=== PATIENT | female | born 1935 | race African-American/Black ===

== ENCOUNTER 2017-01-02 17:31 | Emergency (ER) | payer OTHER ==
[2017-01-02 17:37] VITALS: BP 178/94; PULSE 107; TEMP 98; BMI 31.4
--- NOTE | 2017-01-02 18:36 | PDOC ---
History of Present Illness - General Chief Complaint: Hemorrhoids Stated Complaint: EVALUATION Time Seen by Provider: 01/02/17 18:07 History Source: Patient Exam Limitations: No Limitations - History of Present Illness Travel History: No Initial Comments: 01/02/17 18:40 c/o FB/ protruding sensation to rectum. States feels as tho there is something there that shouldnt be,. STates BMS are regular and generally not hard, no recent straining No Pain Sweliing / constipation/ Bleeding/ No dysuria Timing/Duration: reports: changing over time, intermittent Activities at Onset: reports: none Past History - Travel Traveled outside of the country in the last 30 days: No Close contact w/someone who was outside of country & ill: No - Past Medical History Allergies/Adverse Reactions: Allergies Allergy/AdvReac Type Severity Reaction Status Date / Time No Known Allergies Allergy Verified 01/02/17 17:37 Home Medications: Ambulatory Orders Amlodipine Besylate 10 mg PO ASDIR 01/02/17 Bisacodyl [Dulcolax] 5 mg PO DAILY PRN #10 tablet. 01/02/17 Dexlansoprazole [Dexilant] 60 mg PO DAILY 01/02/17 Metformin HCl [Glucophage] 1,000 mg PO ASDIR 01/02/17 Metoprolol Succinate [Toprol Xl] 50 mg PO ASDIR 01/02/17 Pravastatin Sodium 10 mg PO ASDIR 01/02/17 Diabetes: Yes HTN: Yes - Psycho/Social/Smoking Cessation Hx Suicidal Ideation: No Smoking History: Never smoked Hx Alcohol Use: No Drug/Substance Use Hx: No Substance Use Type: None Review of Systems - Review of Systems Able to Perform ROS?: Yes Is the patient limited South African proficient: Yes Constitutional: Yes: Symptoms Reported, See HPI, Fever, Malaise HEENTM: No: Symptoms Reported Respiratory: Yes: See HPI. No: Symptoms reported ABD/GI: Yes: Symptoms Reported, See HPI, Other ( ). No: Constipated, Diarrhea, Rectal Bleeding Musculoskeletal: Yes: See HPI. No: Symptoms Reported Integumentary: No: Symptoms Reported All Other Systems: Reviewed and Negative *Physical Exam - Vital Signs Last Vital Signs Temp Pulse Resp BP Pulse Ox 98.0 F 107 H 20 178/94 97 01/02/17 17:33 01/02/17 17:33 01/02/17 17:33 01/02/17 17:33 01/02/17 17:33 - Physical Exam General Appearance: Yes: Nourished, Appropriately Dressed, Apparent Distress HEENT: positive: ELISE, TMs Normal, Pharynx Normal Neck: positive: Supple, Lymphadenopathy (R), Lymphadenopathy (L). negative: Tender Respiratory/Chest: positive: Lungs Clear, Normal Breath Sounds Gastrointestinal/Abdominal: positive: Soft, Guarding. negative: Normal Bowel Sounds Rectal Exam: positive: normal exam, normal rectal tone, other (stool in vault, not constipated ). negative: hemorrhoids Musculoskeletal: positive: Normal Inspection Extremity: positive: Normal Capillary Refill, Normal Inspection. negative: Normal Range of Motion Integumentary: positive: Normal Color, Dry, Warm, Pale Neurologic: positive: milk bottler II-XII NML intact, Fully Oriented, Alert, Normal Response, Motor Strength 5/5 Progress Note - Progress Note Progress Note: mild constipation/ and slow defecation - will encourage conservative measures / mineral oil/ fiber. See PMD and possible GI referral for thorough evaluation. *DC/Admit/Observation/Transfer Diagnosis at time of Disposition: Constipation Qualifiers: Constipation type: unspecified constipation type Qualified Code(s): K59.00 - Constipation, unspecified - Discharge Dispostion Disposition: HOME Condition at time of disposition: Stable Admit: No - Prescriptions Prescriptions: Bisacodyl [Dulcolax] 5 mg PO DAILY PRN #10 tablet.dr MENDEZ Reason: Constipation - Referrals Referrals: Gregory Virk MD [Primary Care Provider] - - Patient Instructions Printed Discharge Instructions: DI for Constipation Additional Instructions: Lots of water/ fiber ini diet Mineral oil / [place] oil daily See PMD in 1 week if not improved RTER for fevers/ pain/ bleeding or worsening problems
== END 2017-01-02 18:46 | disposition home or self-care (01) ==
LOC: JERFT 17:31
DX: K59.01 Slow transit constipation (principal); I10 Essential (primary) hypertension; E11.9 Type 2 diabetes mellitus without complications; Z79.84 Long term (current) use of oral hypoglycemic drugs
CPT/HCPCS: 99281-25

== ENCOUNTER 2018-09-30 14:43 | Inpatient (IN) | payer OTHER ==
--- NOTE | 2018-09-30 15:07 | PDOC ---
History of Present Illness - General Chief Complaint: SIRS, Suspected/Possible Stated Complaint: Altered Mental Status Time Seen by Provider: 09/30/18 15:05 History Source: Patient Exam Limitations: No Limitations - History of Present Illness Initial Comments: 09/30/18 15:06 This is an 83 yo M with PMH of HTN and NIDDM2, who presents due to h/a, malaise and collapse last night. her symptoms have started a weeks ago, including difficulty walking and urinary +bowel incontinence. at baseline patient has minor dementia but is aao x 3. here she is aao x 2. Usually she ambulates well with a cane and lives with family. Family is suspicious she may not be compliant with home medication. fall was unwitnessed yesterday but patient denies hitting head. She has a uti in the past. She currently denies f/c, h/a, neck pain, n/v/d/c, melena, hematichezia, dysuria, rhinorrhea, cough, sore throat, change in vision, vertigo, tinnitus Patient did not have a flu shot 09/30/18 15:55 09/30/18 16:01 09/30/18 17:00 09/30/18 17:09 Past History - Past Medical History Allergies/Adverse Reactions: Allergies Allergy/AdvReac Type Severity Reaction Status Date / Time No Known Allergies Allergy Verified 01/02/17 17:37 Home Medications: Ambulatory Orders Metformin HCl [Glucophage] 1,000 mg PO ASDIR 01/02/17 Pravastatin Sodium 10 mg PO ASDIR 01/02/17 Amlodipine Bes/Olmesartan Med [Amlodipine-Olmesartan 10-40 mg] 1 each PO DAILY 09/30/18 Pantoprazole Sodium [Protonix -] 20 mg PO DAILY 09/30/18 Diabetes: Yes HTN: Yes - Suicide/Smoking/Psychosocial Hx Smoking History: Never smoked Hx Alcohol Use: No Drug/Substance Use Hx: No Substance Use Type: None Review of Systems - Review of Systems Able to Perform ROS?: Yes Is the patient limited Arabic proficient: No Constitutional: No: Chills, Fever HEENTM: No: Nose Congestion, Tinnitus, Throat Pain Respiratory: No: Cough, Orthopnea, Shortness of Breath, Wheezing, Hemoptysis Cardiac (ROS): Yes: Syncope. No: Chest Pain, Edema, Irregular Heart Rate, Lightheadedness, Palpitations ABD/GI: No: Abdominal Distended, Constipated, Diarrhea, Nausea, Vomiting, Abdominal cramping : No: Dysuria Musculoskeletal: No: Back Pain, Joint Pain, Muscle Weakness Integumentary: No: Bruising Neurological: Yes: Weakness, Unsteady Gait. No: Headache, Numbness, Paresthesia *Physical Exam - Physical Exam General Appearance: Yes: Nourished, Appropriately Dressed HEENT: positive: EOMI, ELISE, Normal Voice. negative: Scleral Icterus (R), Scleral Icterus (L), Nasal Congestion Neck: positive: Trachea midline, Supple. negative: Tender, Carotid bruit, Lymphadenopathy (R), Lymphadenopathy (L) Respiratory/Chest: positive: Lungs Clear, Normal Breath Sounds Cardiovascular: positive: Regular Rhythm, Regular Rate, S1, S2, Tachycardia. negative: Edema, JVD Gastrointestinal/Abdominal: positive: Normal Bowel Sounds, Flat, Soft. negative : Distended, Guarding, Mass Musculoskeletal: negative: CVA Tenderness Integumentary: positive: Dry, Warm Neurologic: positive: claim taker II-XII NML intact, Alert, Normal Mood/Affect, Motor Strength 5/5. negative: Fully Oriented (aaox2) ED Treatment Course - LABORATORY CBC & Chemistry Diagram: 09/30/18 16:30 09/30/18 16:30 - ADDITIONAL ORDERS Additional order review: 09/30/18 17:41 [facility] NS with frequent PACs no evidence of acs labs remarkable for pyuria. Clinical picture most consistent with sepsis due to symptomatic UTI in elderly. will treat with zosyn 09/30/18 17:[address] head 09/30/18 18:12 CXR nonspecific, no effusions, no infultates, increased interstitial markings diffusely 09/30/18 18:49 will need at least obs m/s if ct head is negative *DC/Admit/Observation/Transfer Diagnosis at time of Disposition: UTI (urinary tract infection) Sepsis Qualifiers: Sepsis type: sepsis due to unspecified organism Qualified Code(s): A41.9 - Sepsis, unspecified organism - Referrals Referrals: Gregory Virk MD [Primary Care Provider] - - Patient Instructions - Post Discharge Activity
[2018-09-30] MEDS ORDERED: SODIUM CHLORIDE 0.9% 500 ML INFUS.BAG IV ONE (16:06)
[2018-09-30 16:48] LABS: BASO % 0.6 % (0-2.0); EOS % 0.7 % (0-4.5); HEMATOCRIT 34.6 % (32.4-45.2); HEMOGLOBIN 11.7 GM/dL (10.7-15.3); MCH 29.4 pg (25.7-33.7); MCHC 33.8 g/dl (32.0-36.0); MEAN CELL VOLUME 87.1 fl (80-96); MEAN PLT VOLUME 8.8 fl (7.5-11.1); MONO % 8.3 % (3.8-10.2); NEUT % 78.4 % (42.8-82.8); PLATELET COUNT 212 K/MM3 (134-434); RBC 3.98 M/mm3 (3.60-5.2); RDW 15.2 % (11.6-15.6); WHITE BLOOD COUNT 7.3 K/mm3 (4.0-10.0)
[2018-09-30 17:17] LABS: URINE APPEARANCE CLOUDY; URINE BILIRUBIN NEGATIVE (<2.0 mg/dL); URINE COLOR YELLOW; URINE GLUCOSE (UA) 2+ (NEGATIVE); URINE KETONE 1+ (NEGATIVE); URINE LEUK ESTERASE 2+ (NEGATIVE); URINE NITRITE NEGATIVE (NEGATIVE); URINE PROTEIN 2+ (NEGATIVE); URINE UROBILINOGEN NEGATIVE mg/dL (0.2-1.0)
[2018-09-30 17:29] LABS: ALBUMIN 3.9 g/dl (3.4-5.0); ALK PHOS 84 U/L (45-117); ANION GAP 11 MMOL/L (8-16); BILIRUBIN,TOTAL 0.6 mg/dL (0.2-1); BLOOD UREA NITROGEN 15 mg/dL (7-18); CALCIUM 8.8 mg/dL (8.5-10.1); CHLORIDE 101 mmol/L (98-107); CO2 23 mmol/L (21-32); CREATININE 1.3 mg/dL (0.55-1.3); GLUCOSE,RANDOM 251 mg/dL (74-106); POTASSIUM 3.9 mmol/L (3.5-5.1); SGOT/AST 14 U/L (15-37); SGPT/ALT 13 U/L (13-61); SODIUM 135 mmol/L (136-145); TOT PROT 7.8 g/dl (6.4-8.2)
[2018-09-30 17:31] LABS: EPI CELLS RARE /HPF (FEW); URINE BACTERIA MODERATE /hpf (NONE SEEN); URINE MUCUS RARE
[2018-09-30] MEDS ORDERED: PIPERACILLIN/TAZOB 3.375 GM 3.375 GM in DEXTROSE 5%-WATER - 50 ML IVPB ONE (17:46)
[2018-09-30] MEDS ORDERED: PIPERACILLIN/TAZOB 3.375 GM 3.375 GM/50 ML BAG IVPB ONE (18:02)
--- NOTE | 2018-09-30 18:49 | PDOC ---
Attending Attestation - HPI HPI: 09/30/18 18:50 The patient is an 83 year old male with a significant past medical history of HTN, NIDDM 2, and mild dementia, who presents to the ED with complaint of headache, malaise and collapse last night. She states her symptoms started about a week ago, including difficulty walking and urinary/bowel incontinence. The patient states her fall was unwitnessed yesterday but patient denies hitting head or LOC. She denies any complaints at this time. The patient denies chest pain, shortness of breath, headache and dizziness. The patient denies fever, chills, nausea, vomit, diarrhea and constipation. The patient denies dysuria, frequency, urgency and hematuria. Allergies: NKDA PCP - Dr. Virk - Physicial Exam PE: 09/30/18 18:50 GENERAL: Well-appearing, well-nourished. No apparent distress. HEENT: Normocephalic, atraumatic. PERRL, EOM intact. CARDIOVASCULAR: Normal S1, S2. Regular rate and rhythm. PULMONARY: Clear to auscultation bilaterally. ABDOMEN: Soft, non-distended, non-tender. EXTREMITIES: Normal ROM in all four extremities. No gross deformities. SKIN: Warm, dry. No rash NEUROLOGICAL: No focal neurological deficits. - Medical Decision Making 09/30/18 18:50 Documentation prepared by Lisa Aldrich, acting as medical voucher clerk for Carol Garces MD <Lisa Aldrich - Last Filed: 09/30/18 18:50> - Resident Resident Name: Marlen Handy - ED Attending Attestation I have performed the following: I have examined & evaluated the patient, The case was reviewed & discussed with the resident, I agree w/resident's findings & plan, Exceptions are as noted - Medical Decision Making 10/01/18 02:30 pt admitted for UTI, AMS <Carol Garces - Last Filed: 10/01/18 02:30>
--- NOTE | 2018-09-30 21:51 | PDOC ---
*Physical Exam - Vital Signs Last Vital Signs Temp Pulse Resp BP Pulse Ox 100.2 F H 104 H 16 155/64 100 09/30/18 14:44 09/30/18 17:45 09/30/18 17:45 09/30/18 17:45 09/30/18 17:45 - Physical Exam Comments: 09/30/18 21:[address] Handy ED Treatment Course - LABORATORY CBC & Chemistry Diagram: 10/01/18 05:20 10/01/18 05:20 - ADDITIONAL ORDERS Additional order review: Laboratory Results 09/30/18 09/30/18 09/30/18 16:30 16:30 16:30 Sodium 135 L Potassium 3.9 Chloride 101 Carbon Dioxide 23 Anion Gap 11 BUN 15 Creatinine 1.3 Creat Clearance w eGFR 39.02 Random Glucose 251 H Lactic Acid 1.5 Calcium 8.8 Total Bilirubin 0.6 AST 14 L ALT 13 Alkaline Phosphatase 84 Total Protein 7.8 Albumin 3.9 TSH Cancelled 0.82 Free T4 Cancelled 1.21 Urine Color Urine Appearance Urine pH Ur Specific Roby Urine Protein Urine Glucose (UA) Urine Ketones Urine Blood Urine Nitrite Urine Bilirubin Urine Urobilinogen Ur Leukocyte Esterase Urine WBC (Auto) Urine RBC (Auto) Ur Epithelial Cells Urine Bacteria Urine Mucus 09/30/18 16:30 Sodium Potassium Chloride Carbon Dioxide Anion Gap BUN Creatinine Creat Clearance w eGFR Random Glucose Lactic Acid Calcium Total Bilirubin AST ALT Alkaline Phosphatase Total Protein Albumin TSH Free T4 Urine Color Yellow Urine Appearance Cloudy Urine pH 6.0 Ur Specific Roby 1.013 Urine Protein 2+ H Urine Glucose (UA) 2+ H Urine Ketones 1+ H Urine Blood 1+ H Urine Nitrite Negative Urine Bilirubin Negative Urine Urobilinogen Negative Ur Leukocyte Esterase 2+ H Urine WBC (Auto) 14 Urine RBC (Auto) 2 Ur Epithelial Cells Rare Urine Bacteria Moderate Urine Mucus Rare 09/30/18 16:30 RBC 3.98 MCV 87.1 MCHC 33.8 RDW 15.2 MPV 8.8 Neutrophils % 78.4 Lymphocytes % 12.0 Monocytes % 8.3 Eosinophils % 0.7 Basophils % 0.6 - Medications Given in the ED: ED Medications Discontinued Medications Generic Name Dose Route Start Last Admin Trade Name Freq PRN Reason Stop Dose Admin Piperacillin Sod/Tazobactam 50 mls @ 100 mls/hr 09/30/18 17:46 09/30/18 18:10 Sod 3.375 gm/ Dextrose IVPB 09/30/18 18:15 100 mls/hr ONCE ONE Administration Protocol Sodium Chloride 1,000 ml 09/30/18 16:06 09/30/18 16:48 Normal Saline - IV 09/30/18 16:07 1,000 ml ONCE ONE Administration Medical Decision Making - Medical Decision Making 10/01/18 12:25 Patient was admitted to Dr. Ching for possible near syncope in the setting of UTI with worsening mental capacity. *DC/Admit/Observation/Transfer Diagnosis at time of Disposition: Sepsis Qualifiers: Sepsis type: sepsis due to unspecified organism Qualified Code(s): A41.9 - Sepsis, unspecified organism UTI (urinary tract infection) Qualifiers: Urinary tract infection type: site unspecified Hematuria presence: without hematuria Qualified Code(s): N39.0 - Urinary tract infection, site not specified - Discharge Dispostion Decision to Admit order Date/Time: Decision to Admit Order Category Date Time Status Decision to Admit to Hospital Routine Admission 09/30/18 21:50 Ordered - Referrals - Patient Instructions - Post Discharge Activity
[2018-09-30] MEDS ORDERED: PATIENT'S OWN MEDICATION (NON-FORMULARY) (Metformin Hcl [Glucophage] 1,000 MG) PO SCH (23:00)
[2018-10-01] MEDS ORDERED: metFORMIN HCL 500 MG TABLET (FP) ONE (00:02)
[2018-10-01] MEDS ORDERED: CEFTRIAXONE 1 GM/50 ML BAG ONE (00:02)
[2018-10-01] MEDS: CEFTRIAXONE 1 GM in DEXTROSE 5%-WATER - 50 ML IVPB SCH ×2 (00:14→10:45)
[2018-10-01 05:58] LABS: BASO % 0.3 % (0-2.0); EOS % 1.2 % (0-4.5); HEMATOCRIT 29.9 % (32.4-45.2); HEMOGLOBIN 10.3 GM/dL (10.7-15.3); MCH 30.2 pg (25.7-33.7); MCHC 34.4 g/dl (32.0-36.0); MEAN CELL VOLUME 87.7 fl (80-96); MEAN PLT VOLUME 8.5 fl (7.5-11.1); MONO % 7.7 % (3.8-10.2); NEUT % 79.8 % (42.8-82.8); PLATELET COUNT 199 K/MM3 (134-434); RBC 3.41 M/mm3 (3.60-5.2); WHITE BLOOD COUNT 6.9 K/mm3 (4.0-10.0)
[2018-10-01 06:24] LABS: ALBUMIN 3.1 g/dl (3.4-5.0); ALK PHOS 74 U/L (45-117); ANION GAP 10 MMOL/L (8-16); BILIRUBIN,TOTAL 0.6 mg/dL (0.2-1); BLOOD UREA NITROGEN 15 mg/dL (7-18); CALCIUM 7.8 mg/dL (8.5-10.1); CHLORIDE 104 mmol/L (98-107); CHOLESTEROL 183 mg/dL (50-200); CO2 24 mmol/L (21-32); CREATININE 1.3 mg/dL (0.55-1.3); GLUCOSE,RANDOM 218 mg/dL (74-106); HDL CHOLESTEROL 74 mg/dL (40-60); SGOT/AST 11 U/L (15-37); SGPT/ALT 11 U/L (13-61); SODIUM 138 mmol/L (136-145); TOT PROT 6.7 g/dl (6.4-8.2); TRIGLYCERIDES 66 mg/dL (0-150)
[2018-10-01] MEDS ORDERED: DOCUSATE SODIUM 100 MG CAPSULE (FP) PO ONE (07:02)
[2018-10-01] MEDS: INSULIN SLIDING SCALE (NOVOLOG) 1 VIAL SQ SCH ×4 (07:15→21:51)
[2018-10-01] MEDS: DOCUSATE SODIUM 100 MG CAPSULE (FP) PO SCH ×3 (07:15→21:49)
[2018-10-01] MEDS ORDERED: PATIENT'S OWN MEDICATION (NON-FORMULARY) (Amlodipine Bes/Olmesartan Med [Amlodipine-Olmesa PO SCH (10:00)
[2018-10-01] MEDS: PANTOPRAZOLE 40 MG TABLET (FP) PO SCH (10:44)
[2018-10-01] MEDS: ASPIRIN COATED 81 MG TABLET.EC PO SCH (10:44)
[2018-10-01] MEDS: amLODIPine BESYLATE 10 MG TABLET (FP) PO SCH (10:44)
[2018-10-01] MEDS ORDERED: VALSARTAN 80 MG TABLET (UD) ONE ×2 (10:46→10:48)
[2018-10-01] MEDS: VALSARTAN 160 MG TABLET (UD) PO SCH (10:53)
--- NOTE | 2018-10-01 11:40 | EKG ---
Test Reason : Blood Pressure : / mmHG Vent. Rate : 092 BPM Atrial Rate : 092 BPM P-R Int : 130 ms QRS Dur : 082 ms QT Int : 352 ms P-R-T Axes : 076 -42 111 degrees QTc Int : 435 ms SINUS RHYTHM WITH FREQUENT and consecutive PREMATURE VENTRICULAR COMPLEXES LEFT AXIS DEVIATION MINIMAL VOLTAGE CRITERIA FOR LVH, MAY BE NORMAL VARIANT NONSPECIFIC T WAVE ABNORMALITY ABNORMAL ECG NO PREVIOUS ECGS AVAILABLE Confirmed by HOMER HOWE, YODIT ([id number]) on 10/01/2018 11:40:01 AM Referred By: Confirmed By:YODIT CORONEL MD
--- NOTE | 2018-10-01 11:52 | CON.NEURO ---
Consult - History of Present Illness History of Present Illness: 83 year old male with a significant past medical history of HTN, NIDDM 2, and mild dementia, who presents to the ED with complaint of headache, malaise and collapse last night. She states her symptoms started about a week ago, including difficulty walking and urinary/bowel incontinence. The patient states her fall was unwitnessed yesterday but patient denies hitting head or LOC. She denies any complaints at this time. The patient denies chest pain, shortness of breath, headache and dizziness. The patient denies fever, chills, nausea, vomit, diarrhea and constipation. The patient denies dysuria, frequency, urgency and hematuria. spoke to daughter , weakness and confusion , worse x weeks vs months , + cognitve issues at baseline, + UTI CT HD severe white matter changes - Alcohol/Substance Use Hx Alcohol Use: No - Smoking History Smoking history: Never smoked Have you smoked in the past 12 months: No Home Medications - Allergies Allergies/Adverse Reactions: Allergies Allergy/AdvReac Type Severity Reaction Status Date / Time No Known Allergies Allergy Verified 01/02/17 17:37 - Home Medications Home Medications: Ambulatory Orders Metformin HCl [Glucophage] 1,000 mg PO ASDIR 01/02/17 Pravastatin Sodium 10 mg PO ASDIR 01/02/17 Amlodipine Bes/Olmesartan Med [Amlodipine-Olmesartan 10-40 mg] 1 each PO DAILY 09/30/18 Pantoprazole Sodium [Protonix -] 20 mg PO DAILY 09/30/18 Physical Exam-Neuro Vital Signs: Vital Signs Temperature 97.6 F 10/01/18 10:31 Pulse Rate 82 10/01/18 10:31 Respiratory Rate 16 10/01/18 10:31 Blood Pressure 146/86 10/01/18 10:31 O2 Sat by Pulse Oximetry (%) 98 10/01/18 07:07 Constitutional: Yes: Well Nourished Labs: CBC, BMP 10/01/18 05:20 10/01/18 05:20 - Neuro Exam Level Of Consciousness: Yes: Alert (awake, alert, not orienbted to place, yr [id number], n grandchildrens names, + left sided field cut, left sided drfit, no clear weakness, plnatars down ) Imaging - Results Cat Scan: Report Reviewed, Image Reviewed Problem List - Problems (1) Gait abnormality Code(s): R26.9 - UNSPECIFIED ABNORMALITIES OF GAIT AND MOBILITY (2) UTI (urinary tract infection) Code(s): N39.0 - URINARY TRACT INFECTION, SITE NOT SPECIFIED Qualifiers: Urinary tract infection type: site unspecified Hematuria presence: without hematuria Qualified Code(s): N39.0 - Urinary tract infection, site not specified Assessment/Plan 83 year old male with a significant past medical history of HTN, NIDDM 2, and mild dementia, who presents to the ED with complaint of headache, malaise and collapse last night. She states her symptoms started about a week ago, including difficulty walking and urinary/bowel incontinence. The patient states her fall was unwitnessed yesterday but patient denies hitting head or LOC. She denies any complaints at this time. The patient denies chest pain, shortness of breath, headache and dizziness. The patient denies fever, chills, nausea, vomit, diarrhea and constipation. The patient denies dysuria, frequency, urgency and hematuria. 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, UTI, + left sided field cut and drift suggest new /subacute R posterior ischemic event check MRI /MRA BRAIN, DOPPLERS CARD FU ABX for UTI REHAB /SW DR GORE
--- NOTE | 2018-10-01 12:58 | CONSULT ---
Consult Consult Specialty:: PM&R Reason for Consultation:: falls - History of Present Illness Chief Complaint: sole R foot pain History of Present Illness: This is an 83 year old woman with a medical history of mild dementia, HTN, DMT2 , who presented to the ED 09/30/18 following a fall 09/29/18 as well as DANIEL and malaise, worsening x1 week. UA was positive, and she received Zosyn and Ceftriaxone pending urine and blood cx results. 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 Physiatry is being consulted for further recommendations. - History Source History Provided By: Patient, Family Member, Medical Record - Alcohol/Substance Use Hx Alcohol Use: No - Smoking History Smoking history: Never smoked Have you smoked in the past 12 months: No - Social History Usual Living Arrangement: With Child (lives with daughter in duplex with 1 step to enter and 12-14 steps to bedroom) ADL: Independent (previously Independent in ADLs, and ambulated in community with [place]) Home Medications - Allergies Allergies/Adverse Reactions: Allergies Allergy/AdvReac Type Severity Reaction Status Date / Time No Known Allergies Allergy Verified 01/02/17 17:37 - Home Medications Home Medications: Ambulatory Orders Metformin HCl [Glucophage] 1,000 mg PO ASDIR 01/02/17 Pravastatin Sodium 10 mg PO ASDIR 01/02/17 Amlodipine Bes/Olmesartan Med [Amlodipine-Olmesartan 10-40 mg] 1 each PO DAILY 09/30/18 Pantoprazole Sodium [Protonix -] 20 mg PO DAILY 09/30/18 Review of Systems Findings/Remarks: Denies fevers, chills, changes in vision/ hearing/ mood, CP, SOB, abdominal pain , nausea, vomiting, constipation, diarrhea, dysuria, muscle/ joint pain, numbness or paresthesias. Notes dole R foot pain. Reports falling due to tripping and denies syncope. Physical Exam Vital Signs: Vital Signs Temperature 97.6 F 10/01/18 10:31 Pulse Rate 82 10/01/18 10:31 Respiratory Rate 16 10/01/18 10:31 Blood Pressure 146/86 10/01/18 10:31 O2 Sat by Pulse Oximetry (%) 98 10/01/18 07:07 Musculoskeletal: Yes: Other (General: calm elderly AAF sitting in wheelchair NAD , awake and alert, does not answer orientation questions N/M: R shoulder flexion to 60 degrees, L shoulder flexion to 90 degrees, grossly 4+/5 BUE/ BLE; Pinprick Intact BUE/ BLE Extremities: no BLE pitting edema, no B calf tenderness , +R shoulder/ B knee crepitus, mild tenderness sole R foot without R ankle instability or painful ROM) Labs: CBC, BMP 10/01/18 05:20 10/01/18 05:20 Imaging - Results Cat Scan: Report Reviewed (CT head as per HPI) Assessment/Plan Impression: 1) Deficits mobility/ ADLs 2) Falls 3) Gait abnormality 4) Sepsis due to UTI with cultures pending 5) R shoulder/ B knee OA 6) hx mild dementia 7) hx HTN 8) hx DMT2 9) 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 10) Obesity 11) Anemia 12) Denies flu shot/ pneumovax Recommendations: 1) PT for stretching strengthening ROM and functional mobility 2) Falls, safety precautions 3) Cardiac, diabetic precautions 4) Ice/ taylor wrap R foot prn 5) Heat R shoulder/ B knee prn, heat R foot/ ankle starting 10/02/18 prn 6) DVT ppx: encourage ambulation 7) Denies constipation on current bowel regimen 8) Monitor CBC given anemia 9) Nutrition consult for obesity 10) Continue plan per primary team including cx results 11) Discharge planning: will likely be able to return home with services once medically stable, although depending on hospital course may also benefit from short- course inpatient rehabilitation Thank you for this referral.
[2018-10-01] MEDS: POLYETHYLENE GLYCOL 3350 119 GM BTL PO SCH (13:12)
[2018-10-01] MEDS ORDERED: INSULIN (NOVOLOG) ASPART 100 UNITS/ML 10ML VIAL ONE (13:17)
--- NOTE | 2018-10-01 14:55 | HP ---
Admitting History and Physical - Admission History of Present Illness: This is an 83 yo M with PMH of HTN and NIDDM2, who presents due to h/a, malaise and collapse last night. her symptoms have started a weeks ago, including difficulty walking and urinary +bowel incontinence. at baseline patient has minor dementia but is aao x 3. here she is aao x 2. Usually she ambulates well with a cane and lives with family. Family is suspicious she may not be compliant with home medication. fall was unwitnessed yesterday but patient denies hitting head. She has a uti in the past. She currently denies f/c, h/a, neck pain, n/v/d/c, melena, hematichezia, dysuria, rhinorrhea, cough, sore throat, change in vision, vertigo, tinnitus history obtained from both daughter / both at bedside at time of exam They report slow cognitive decline until just recent months, when confusion and forgetfulness has "increase dramatically." on exam she is oriented X3 and is able to give history but "forgets the details " as per daughters She is followed in the community by Dr Virk.-- per patient for last few years -- per daughter for almost 20 yrs. 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 No: CHF, [place] Pulmonary: No: Asthma, Cancer, COPD Gastrointestinal: No: Cancer Renal/: No: Renal Inusuff Reproductive: Yes: Postmenopausal Endocrine: Yes: Diabetes Mellitus - Smoking History Smoking history: Never smoked Have you smoked in the past 12 months: No - Alcohol/Substance Use Hx Alcohol Use: No - Social History Usual Living Arrangement: Yes: With Child ADL: Independent (previously Independent in ADLs, and ambulated in community with [place]) History of Recent Travel: No Home Medications - Allergies Allergies/Adverse Reactions: Allergies Allergy/AdvReac Type Severity Reaction Status Date / Time No Known Allergies Allergy Verified 01/02/17 17:37 - Home Medications Home Medications: Ambulatory Orders Metformin HCl [Glucophage] 1,000 mg PO ASDIR 01/02/17 Pravastatin Sodium 10 mg PO ASDIR 01/02/17 Amlodipine Bes/Olmesartan Med [Amlodipine-Olmesartan 10-40 mg] 1 each PO DAILY 09/30/18 Pantoprazole Sodium [Protonix -] 20 mg PO DAILY 09/30/18 Review of Systems - Review of Systems Constitutional: reports: No Symptoms, Loss of Appetite. denies: Chills, Diaphoresis, Fever Eyes: reports: Recent Change in Vision (per daughters' visual changes /) HENT: reports: No Symptoms Neck: reports: No Symptoms Cardiovascular: denies: Chest Pain, Edema, Palpitations, Shortness of Breath Respiratory: denies: Cough, SOB on Exertion Gastrointestinal: reports: No Symptoms Genitourinary: reports: No Symptoms Breasts: reports: No Symptoms Reported Musculoskeletal: reports: No Symptoms Integumentary: reports: No Symptoms Neurological: reports: Confusion, Incoordination Endocrine: reports: No Symptoms Hematology/Lymphatic: reports: No Symptoms Psychiatric: reports: No Symptoms Physical Examination Vital Signs: Vital Signs Temperature 97.6 F 10/01/18 10:31 Pulse Rate 110 H 10/01/18 14:21 Respiratory Rate 17 10/01/18 14:21 Blood Pressure 123/72 10/01/18 14:21 O2 Sat by Pulse Oximetry (%) 98 10/01/18 14:21 Constitutional: Yes: Well Nourished, No Distress, Calm Eyes: Yes: WNL, Conjunctiva Clear HENT: Yes: WNL, Atraumatic, Normocephalic Neck: Yes: WNL, Supple, Trachea Midline Cardiovascular: Yes: Regular Rate and Rhythm Respiratory: Yes: Regular, CTA Bilaterally Gastrointestinal: Yes: Normal Bowel Sounds, Soft, Abdomen, Obese ...Rectal Exam: Yes: Deferred Renal/: Yes: WNL Breast(s): Yes: WNL Musculoskeletal: Yes: WNL. No: Joint Stiffness, Joint Swelling, Muscle Pain Extremities: Yes: WNL. No: Deformity Edema: No Peripheral Pulses WNL: Yes Integumentary: Yes: WNL Neurological: Yes: Alert, Oriented, Confusion ...Motor Strength: WNL Psychiatric: Yes: Alert, Oriented Labs: CBC, BMP 10/01/18 05:20 10/01/18 05:20 Problem List - Problems (1) UTI (urinary tract infection) Code(s): N39.0 - URINARY TRACT INFECTION, SITE NOT SPECIFIED Qualifiers: Urinary tract infection type: site unspecified Hematuria presence: without hematuria Qualified Code(s): N39.0 - Urinary tract infection, site not specified (2) Altered mental status, unspecified Code(s): R41.82 - ALTERED MENTAL STATUS, UNSPECIFIED (3) Diabetes mellitus Code(s): E11.9 - TYPE 2 DIABETES MELLITUS WITHOUT COMPLICATIONS (4) Hypertension Code(s): I10 - ESSENTIAL (PRIMARY) HYPERTENSION (5) Gait abnormality Code(s): R26.9 - UNSPECIFIED ABNORMALITIES OF GAIT AND MOBILITY (6) Near syncope Code(s): R55 - SYNCOPE AND COLLAPSE (7) Fall as cause of accidental injury at home as place of occurrence Code(s): W19.XXXA - UNSPECIFIED FALL, INITIAL ENCOUNTER; Y92.009 - UNSP PLACE IN UNSP NON-[facility]IVATE[facility] RESIDENCE PLACE
--- NOTE | 2018-10-01 16:40 | CON.CARD ---
Cardiology Consult (text) - Consultation Consultation Note: cc: syncope hpi: 83 f hx htn, hld, dm, mild dementia here s/p syncope. Pt has been feeling weak and lethargic past day or so. Then she was standing and began to feel weak and fell. No palps cp sob pnd orthopnea le edema. No hx hrt dz. Found to have uti. pmh: per hpi psh: nc social: no tob fam: no premature cad, scd ros: per hpi; no gib hematuria wt loss muscle pain cough meds: Current Medications Generic Name Dose Route Start Last Admin Trade Name Nisha PRN Reason Stop Dose Admin Amlodipine Besylate 10 mg 10/01/18 10:00 10/01/18 10:44 Norvasc - PO 10 mg DAILY LIZA Administration Aspirin 81 mg 10/01/18 10:00 10/01/18 10:44 Ecotrin - PO 81 mg DAILY LIZA Administration Atorvastatin Calcium 40 mg 10/01/18 22:00 Lipitor - PO HS LIZA Docusate Sodium 100 mg 10/01/18 06:00 10/01/18 13:13 Colace - PO 100 mg TID LIZA Administration Ceftriaxone Sodium 1 gm/ 50 mls @ 100 mls/hr 09/30/18 23:45 10/01/18 10:45 Dextrose IVPB 100 mls/hr DAILY LIZA Administration Protocol Insulin Aspart 1 vial 10/01/18 07:00 10/01/18 12:12 Novolog Vial Sliding Scale - SQ 2 unit ACHS LIZA Administration Protocol Pantoprazole Sodium 40 mg 10/01/18 10:00 10/01/18 10:44 Protonix - PO 40 mg DAILY LIZA Administration Polyethylene Glycol 17 gm 10/01/18 10:00 10/01/18 13:12 Miralax (For Daily Use) - PO Not Given DAILY LIZA Valsartan 320 mg 10/01/18 10:00 10/01/18 10:53 Diovan - PO 320 mg DAILY LIZA Administration Home Medications Medication Instructions Recorded Metformin HCl [Glucophage] 1,000 mg PO ASDIR 01/02/17 Pravastatin Sodium 10 mg PO ASDIR 01/02/17 Amlodipine Bes/Olmesartan Med 1 each PO DAILY 09/30/18 [Amlodipine-Olmesartan 10-40 mg] Pantoprazole Sodium [Protonix -] 20 mg PO DAILY 09/30/18 pe: Vital Signs Period Temp Pulse Resp BP Sys/Giron Pulse Ox Last 24 Hr 97.6 F-98.1 F 82-122 16-20 123-167/64-86 97-100 nad no jvd rrr s1s2 no mrg cta bl nl eff awake alert appropriate no jaundice diaphoresis pos dp pt no carotid bruits abd nt nd pos bs no le e/c/c Laboratory Last Values WBC 6.9 K/mm3 (4.0-10.0) 10/01/18 05:20 RBC 3.41 M/mm3 (3.60-5.2) L 10/01/18 05:20 Hgb 10.3 GM/dL (10.7-15.3) L 10/01/18 05:20 Hct 29.9 % (32.4-45.2) L 10/01/18 05:20 MCV 87.7 fl (80-96) 10/01/18 05:20 MCH 30.2 pg (25.7-33.7) 10/01/18 05:20 MCHC 34.4 g/dl (32.0-36.0) 10/01/18 05:20 RDW 15.0 % (11.6-15.6) 10/01/18 05:20 Plt Count 199 K/MM3 (134-434) 10/01/18 05:20 MPV 8.5 fl (7.5-11.1) 10/01/18 05:20 Absolute Neuts (auto) 5.5 K/mm3 (1.5-8.0) 10/01/18 05:20 Neutrophils % 79.8 % (42.8-82.8) 10/01/18 05:20 Lymphocytes % 11.0 % (8-40) 10/01/18 05:20 Monocytes % 7.7 % (3.8-10.2) 10/01/18 05:20 Eosinophils % 1.2 % (0-4.5) 10/01/18 05:20 Basophils % 0.3 % (0-2.0) 10/01/18 05:20 Nucleated RBC % 0 % (0-0) 10/01/18 05:20 Sodium 138 mmol/L (136-145) 10/01/18 05:20 Potassium 4.0 mmol/L (3.5-5.1) 10/01/18 05:20 Chloride 104 mmol/L (98-107) 10/01/18 05:20 Carbon Dioxide 24 mmol/L (21-32) 10/01/18 05:20 Anion Gap 10 MMOL/L (8-16) 10/01/18 05:20 BUN 15 mg/dL (7-18) 10/01/18 05:20 Creatinine 1.3 mg/dL (0.55-1.3) 10/01/18 05:20 Creat Clearance w eGFR 39.02 (>60) 10/01/18 05:20 POC Glucometer 214 UNITS (80-120) 10/01/18 13:08 Random Glucose 218 mg/dL (74-106) H 10/01/18 05:20 Hemoglobin A1c % 10.4 % (4.2-6.3) H 10/01/18 05:20 Lactic Acid 1.5 mmol/L (0.4-2.0) 09/30/18 16:30 Calcium 7.8 mg/dL (8.5-10.1) L 10/01/18 05:20 Total Bilirubin 0.6 mg/dL (0.2-1) 10/01/18 05:20 AST 11 U/L (15-37) L 10/01/18 05:20 ALT 11 U/L (13-61) L 10/01/18 05:20 Alkaline Phosphatase 74 U/L (45-117) 10/01/18 05:20 Total Protein 6.7 g/dl (6.4-8.2) 10/01/18 05:20 Albumin 3.1 g/dl (3.4-5.0) L 10/01/18 05:20 Triglycerides 66 mg/dL (0-150) 10/01/18 05:20 Cholesterol 183 mg/dL (50-200) 10/01/18 05:20 Total LDL Cholesterol 93 mg/dL (5-100) 10/01/18 05:20 HDL Cholesterol 74 mg/dL (40-60) H 10/01/18 05:20 TSH 0.82 uIU/ml (0.358-3.74) 09/30/18 16:30 Free T4 1.21 ng/dl (0.76-1.46) 09/30/18 16:30 Urine Color Yellow 09/30/18 16:30 Urine Appearance Cloudy 09/30/18 16:30 Urine pH 6.0 (5.0-8.0) 09/30/18 16:30 Ur Specific [place] 1.013 (1.010-1.035) 09/30/18 16:30 Urine Protein 2+ (NEGATIVE) H 09/30/18 16:30 Urine Glucose (UA) 2+ (NEGATIVE) H 09/30/18 16:30 Urine Ketones 1+ (NEGATIVE) H 09/30/18 16:30 Urine Blood 1+ (NEGATIVE) H 09/30/18 16:30 Urine Nitrite Negative (NEGATIVE) 09/30/18 16:30 Urine Bilirubin Negative (<2.0 mg/dL) 09/30/18 16:30 Urine Urobilinogen Negative mg/dL (0.2-1.0) 09/30/18 16:30 Ur Leukocyte Esterase 2+ (NEGATIVE) H 09/30/18 16:30 Urine WBC (Auto) 14 /hpf (3-5) 09/30/18 16:30 Urine RBC (Auto) 2 /hpf (0-3) 09/30/18 16:30 Ur Epithelial Cells Rare /HPF (FEW) 09/30/18 16:30 Urine Bacteria Moderate /hpf (NONE SEEN) 09/30/18 16:30 Urine Mucus Rare 09/30/18 16:30 Influenza A (Rapid) Negative 09/30/18 16:30 Influenza B (Rapid) Negative 09/30/18 16:30 cxr: clear lungs ecg: sr, pacs with aberrant conduction, no ischemic changes, nl intervals a/p: 83 f hx htn, hld, dm, mild dementia here s/p syncope. syncope: -likely related to uti/sepsis -no signs acs or chf -check echo, monitor tele, check ortho vs htn: -cont home meds hld: -cont statin abnl ecg: -ecg showing sr with pacs with aberrant conduction, likely related to infection/ sepsis -check echo
--- NOTE | 2018-10-01 17:56 | CON.ID ---
Consult Consult Specialty:: Infectious Disease Referred by:: Dr. Ching Reason for Consultation:: UTI - History of Present Illness Chief Complaint: Headache History of Present Illness: Patient is an 83 yr old female with PMHx DM, HTN, HLD with gradually worsening dementia over the past several months was brought to the ED for DANIEL. She has been non-compliant with meds and appointment over the past year. Her daughters report confusion and (L) visual neglect for the past few days. Yesterday, had felt weak and was brought ot the ED. Hospital course significant fro W/Up ? CVA. Started on empiric antibiotics. 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 No: CHF, [place] Pulmonary: No: Asthma, Cancer, COPD Gastrointestinal: No: Cancer Renal/: No: Renal Inusuff Endocrine: Yes: Diabetes Mellitus - Alcohol/Substance Use Hx Alcohol Use: No - Smoking History Smoking history: Never smoked Have you smoked in the past 12 months: No - Social History Usual Living Arrangement: With Child (lives with daughter in duplex with 1 step to enter and 12-14 steps to bedroom) ADL: Independent (previously Independent in ADLs, and ambulated in community with [place]) History of Recent Travel: No Home Medications - Allergies Allergies/Adverse Reactions: Allergies Allergy/AdvReac Type Severity Reaction Status Date / Time No Known Allergies Allergy Verified 01/02/17 17:37 - Home Medications Home Medications: Ambulatory Orders Metformin HCl [Glucophage] 1,000 mg PO ASDIR 01/02/17 Pravastatin Sodium 10 mg PO ASDIR 01/02/17 Amlodipine Bes/Olmesartan Med [Amlodipine-Olmesartan 10-40 mg] 1 each PO DAILY 09/30/18 Pantoprazole Sodium [Protonix -] 20 mg PO DAILY 09/30/18 Review of Systems - Review of Systems Constitutional: denies: Chills, Fever, Night Sweats Eyes: reports: No Symptoms Cardiovascular: reports: No Symptoms Respiratory: reports: No Symptoms Gastrointestinal: reports: No Symptoms Physical Exam Vital Signs: Vital Signs Temperature 98.1 F 10/01/18 16:14 Pulse Rate 122 H 10/01/18 16:14 Respiratory Rate 18 10/01/18 16:14 Blood Pressure 134/82 10/01/18 16:14 O2 Sat by Pulse Oximetry (%) 97 10/01/18 16:23 Constitutional: Yes: Well Nourished, No Distress, Calm Eyes: Yes: Conjunctiva Clear, PERRL Neck: Yes: Supple Cardiovascular: Yes: Regular Rate and Rhythm Respiratory: Yes: Regular, CTA Bilaterally Gastrointestinal: Yes: Normal Bowel Sounds, Soft Musculoskeletal: Yes: WNL Labs: CBC, BMP 10/01/18 05:20 10/01/18 05:20 Imaging - Results Chest X-ray: Report Reviewed Cat Scan: Report Reviewed Problem List - Problems (1) Altered mental status, unspecified Code(s): R41.82 - ALTERED MENTAL STATUS, UNSPECIFIED (2) Diabetes mellitus Code(s): E11.9 - TYPE 2 DIABETES MELLITUS WITHOUT COMPLICATIONS (3) Hypertension Code(s): I10 - ESSENTIAL (PRIMARY) HYPERTENSION (4) UTI (urinary tract infection) Code(s): N39.0 - URINARY TRACT INFECTION, SITE NOT SPECIFIED Qualifiers: Urinary tract infection type: site unspecified Hematuria presence: without hematuria Qualified Code(s): N39.0 - Urinary tract infection, site not specified Assessment/Plan Pt with DM, HTN, HLD and MS change ? CVA UTI although no pyuria Neuro w/up in progress Cont CTX for now, IF c/s negative then DC antibiotic.
[2018-10-01] MEDS: ATORVASTATIN CA 40 MG TABLET (FP) PO SCH (21:49)
[2018-10-02] MEDS: INSULIN SLIDING SCALE (NOVOLOG) 1 VIAL SQ SCH ×4 (06:31→21:25)
[2018-10-02] MEDS: DOCUSATE SODIUM 100 MG CAPSULE (FP) PO SCH ×3 (06:53→21:12)
[2018-10-02] MEDS ORDERED: cefTRIAXone SODIUM 1 GM VIAL ONE (08:55)
[2018-10-02] MEDS ORDERED: DEXTROSE 5%-WATER - 50 ML IVPB ONE (08:55)
[2018-10-02] MEDS: POLYETHYLENE GLYCOL 3350 119 GM BTL PO SCH (10:00)
[2018-10-02] MEDS ORDERED: LORazepam 2 MG/ML SDV VIAL ONE (10:05)
--- NOTE | 2018-10-02 10:18 | RAPID ---
Physical Examination Vital Signs: Vital Signs Temperature 98.3 F 10/02/18 02:00 Pulse Rate 83 10/02/18 05:59 Respiratory Rate 20 10/02/18 05:59 Blood Pressure 152/91 10/02/18 05:59 O2 Sat by Pulse Oximetry (%) 100 10/01/18 21:00 Labs: CBC, BMP 10/01/18 05:20 10/01/18 05:20 Rapid Response - Rapid Response Assessment: Rapid response called on 4W. Pt's family present at bedside. Per nurse, pt was found to have a tonic-clonic seizure lasting 1 minute, now post-ictal. Pt's family reports that this is the patient's first seizure. Per nurse and family member, pt was at baseline talking earlier this morning. Initial VS: 177/74, repeat 145/81 99.6 HR 104 95% RA Glu 397 PE: Unarousable to sternal rub. Lungs CTA B/L. Heart RRR. Normal S1 S2. Reflexes intact. Unable to assess neuro exam. A/P: First time seizure possibly 2/2 acute UTI infection -CBC/CMP/Lac ordered -Neurologist called (Dr. Barahona) called with recommendation to give loading dose of Keppra 1000 mg -PCP made aware
[2018-10-02] MEDS ORDERED: levETIRAcetam 500 MG/5 ML INJECTION VIAL IVPB ONE ×2 (10:45→20:05)
[2018-10-02 11:12] LABS: BASO % 0.3 % (0-2.0); EOS % 0.2 % (0-4.5); HEMATOCRIT 31.5 % (32.4-45.2); HEMOGLOBIN 10.3 GM/dL (10.7-15.3); LYMPH % 3.9 % (8-40); MCHC 32.8 g/dl (32.0-36.0); MEAN CELL VOLUME 88.3 fl (80-96); MEAN PLT VOLUME 8.9 fl (7.5-11.1); MONO % 5.4 % (3.8-10.2); NEUT % 90.2 % (42.8-82.8); PLATELET COUNT 200 K/MM3 (134-434); RBC 3.57 M/mm3 (3.60-5.2); RDW 15.4 % (11.6-15.6); WHITE BLOOD COUNT 9.9 K/mm3 (4.0-10.0)
--- NOTE | 2018-10-02 11:20 | PN ---
Progress Note (short form) - Note Progress Note: s: had seizure this AM, got ativan, now lethargic o: Vital Signs Period Temp Pulse Resp BP Sys/Giron Pulse Ox Last 24 Hr 98.1 F-99.6 F 78-122 17-22 123-177/59-91 97-100 nad no jvd rrr s1s2 no mrg cta bl sedated no jaundice diaphoresis abd nd pos bs no le e/c/c Current Medications Generic Name Dose Route Start Last Admin Trade Name Nisha PRN Reason Stop Dose Admin Amlodipine Besylate 10 mg 10/01/18 10:00 10/01/18 10:44 Norvasc - PO 10 mg DAILY LIZA Administration Aspirin 81 mg 10/01/18 10:00 10/01/18 10:44 Ecotrin - PO 81 mg DAILY LIZA Administration Atorvastatin Calcium 40 mg 10/01/18 22:00 10/01/18 21:49 Lipitor - PO 40 mg HS LIZA Administration Docusate Sodium 100 mg 10/01/18 06:00 10/02/18 06:53 Colace - PO 100 mg TID LIZA Administration Ceftriaxone Sodium 1 gm/ 50 mls @ 100 mls/hr 09/30/18 23:45 10/01/18 10:45 Dextrose IVPB 100 mls/hr DAILY LIZA Administration Protocol Insulin Aspart 1 vial 10/01/18 07:00 10/02/18 06:31 Novolog Vial Sliding Scale - SQ Not Given ACHS LIZA Protocol Pantoprazole Sodium 40 mg 10/01/18 10:00 10/01/18 10:44 Protonix - PO 40 mg DAILY LIZA Administration Polyethylene Glycol 17 gm 10/01/18 10:00 10/01/18 13:12 Miralax (For Daily Use) - PO Not Given DAILY LIZA Valsartan 320 mg 10/01/18 10:00 10/01/18 10:53 Diovan - PO 320 mg DAILY LIZA Administration CBC, BMP 10/02/18 10:45 cxr: clear lungs ecg: sr, pacs with aberrant conduction, no ischemic changes, nl intervals tele: sr, pacs, brief atrial run (pat) a/p: 83 f hx htn, hld, dm, mild dementia here s/p syncope. syncope: -likely related to uti/sepsis -no signs acs or chf -check echo, monitor tele, check ortho vs htn: -cont home meds hld: -cont statin abnl ecg: -ecg showing sr with pacs with aberrant conduction, likely related to infection/ sepsis -check echo possible cva, seizure: -neuro following -brain mri planned
[2018-10-02 11:38] LABS: ALBUMIN 3.2 g/dl (3.4-5.0); ALK PHOS 72 U/L (45-117); ANION GAP 15 MMOL/L (8-16); BILIRUBIN,TOTAL 0.6 mg/dL (0.2-1); BLOOD UREA NITROGEN 21 mg/dL (7-18); CALCIUM 8.6 mg/dL (8.5-10.1); CHLORIDE 103 mmol/L (98-107); CO2 16 mmol/L (21-32); CREATININE 1.7 mg/dL (0.55-1.3); POTASSIUM 3.7 mmol/L (3.5-5.1); SGOT/AST 11 U/L (15-37); SGPT/ALT 12 U/L (13-61); SODIUM 135 mmol/L (136-145); TOT PROT 6.8 g/dl (6.4-8.2)
--- NOTE | 2018-10-02 11:44 | PN ---
Progress Note (short form) - Note Progress Note: 83 y/o female found lethargic in bed. Dtr/ nurse present at bedside and informed that pt had a clonic-tonic sz x 1 minute, postictal. Rapid response called. Dr. Barahona aware and loading dose Keppra ordered. Vital Signs Period Temp Pulse Resp BP Sys/Giron Pulse Ox Last 24 Hr 98.1 F-99.6 F 78-122 17-22 123-177/59-91 97-100 CBC, BMP 10/02/18 10:45 10/02/18 10:45 HEENT- Normocephalic Neck- supple Lungs- CTAB Heart- S1/S2 Abd- Soft, nt Ext- No LE edema Active Medications Amlodipine Besylate (Norvasc -) 10 mg PO DAILY [facility] Last Admin: 10/01/18 10:44 Dose: 10 mg Aspirin (Ecotrin -) 81 mg PO DAILY [facility] Last Admin: 10/01/18 10:44 Dose: 81 mg Atorvastatin Calcium (Lipitor -) 40 mg PO HS [facility] Last Admin: 10/01/18 21:49 Dose: 40 mg Docusate Sodium (Colace -) 100 mg PO TID LIZA Last Admin: 10/02/18 06:53 Dose: 100 mg Ceftriaxone Sodium 1 gm/ (Dextrose) 50 mls @ 100 mls/hr IVPB DAILY [facility]; Protocol Last Admin: 10/01/18 10:45 Dose: 100 mls/hr Insulin Aspart (Novolog Vial Sliding Scale -) 1 vial SQ ACHS [facility]; Protocol Last Admin: 10/02/18 06:31 Dose: Not Given Pantoprazole Sodium (Protonix -) 40 mg PO DAILY [facility] Last Admin: 10/01/18 10:44 Dose: 40 mg Polyethylene Glycol (Miralax (For Daily Use) -) 17 gm PO DAILY [facility] Last Admin: 10/01/18 13:12 Dose: Not Given Valsartan (Diovan -) 320 mg PO DAILY [facility] Last Admin: 10/01/18 10:53 Dose: 320 mg Assmt/Plan #Sz Keppra 1000 mg CBC, CMP and Lactic acid MRI/MRA Neuro appreciated #UTI Cont IV antibiotics, per ID #DM continue sliding scale #HTN Cont BB and ARB Problem List - Problems (1) UTI (urinary tract infection) Code(s): N39.0 - URINARY TRACT INFECTION, SITE NOT SPECIFIED Qualifiers: Urinary tract infection type: site unspecified Hematuria presence: without hematuria Qualified Code(s): N39.0 - Urinary tract infection, site not specified (2) Altered mental status, unspecified Code(s): R41.82 - ALTERED MENTAL STATUS, UNSPECIFIED (3) Diabetes mellitus Code(s): E11.9 - TYPE 2 DIABETES MELLITUS WITHOUT COMPLICATIONS (4) Hypertension Code(s): I10 - ESSENTIAL (PRIMARY) HYPERTENSION (5) Gait abnormality Code(s): R26.9 - UNSPECIFIED ABNORMALITIES OF GAIT AND MOBILITY (6) Near syncope Code(s): R55 - SYNCOPE AND COLLAPSE (7) Fall as cause of accidental injury at home as place of occurrence Code(s): W19.XXXA - UNSPECIFIED FALL, INITIAL ENCOUNTER; Y92.009 - UNSP PLACE IN [facility]
[2018-10-02] MEDS: CEFTRIAXONE 1 GM in DEXTROSE 5%-WATER - 50 ML IVPB SCH (12:32)
[2018-10-02] MEDS: amLODIPine BESYLATE 10 MG TABLET (FP) PO SCH (12:42)
[2018-10-02] MEDS: ASPIRIN COATED 81 MG TABLET.EC PO SCH (12:43)
[2018-10-02] MEDS: PANTOPRAZOLE 40 MG TABLET (FP) PO SCH (12:43)
[2018-10-02] MEDS: VALSARTAN 160 MG TABLET (UD) PO SCH (12:43)
--- NOTE | 2018-10-02 13:18 | ECHO ---
Name: CARLOS DOWD Exam:Adult Echocardiogram Study Date: 10/02/2018 08:41 AM Age: 83 yrs Reason For Study: abn ekg Height: 64 in Weight: 175 lb BSA: 1.8 m2 MMode/2D Measurements & Calculations IVSd: 0.89 cm Ao root diam: 2.3 cm LVIDd: 3.9 cm LA dimension: 3.0 cm LVIDs: 2.8 cm LVPWd: 1.1 cm LVPWs: 1.7 cm EDV(Teich): 64.9 ml ESV(Teich): 28.6 ml LVOT diam: 2.0 cm Doppler Measurements & Calculations MV E max simeon: 80.0 cm/sec Ao V2 max: 230.4 cm/sec MV A max simeon: 100.2 cm/sec Ao max P.4 mmHg MV E/A: 0.80 AI P1/2t: 351.7 msec MV dec time: 0.17 sec OPAL(V,D): 1.4 cm2 AI max simeon: 475.6 cm/sec LV V1 max P.9 mmHg AI max P.5 mmHg LV V1 max: 98.2 cm/sec AI dec slope: 396.1 cm/sec2 PA V2 max: 148.6 cm/sec Med Peak E' Simeon: 9.9 cm/sec PA max P.9 mmHg Med E/e': 8.1 Lat Peak E' Simeon: 7.0 cm/sec Lat E/e': 11.4 Procedure A complete two-dimensional transthoracic echocardiogram was performed (2D, M-mode, Doppler and color flow Doppler). Left Ventricle The left ventricular size, thickness and function are normal. The left ventricular ejection fraction is normal. Ejection Fraction = 60-65%. The left ventricular wall motion is normal. Right Ventricle The right ventricle is normal in size and function. Atria Normal left and right atrial size and function. Mitral Valve There is no mitral regurgitation noted. Tricuspid Valve No tricuspid regurgitation. There was insufficient TR detected to calculate RV systolic pressure. Aortic Valve Mild valvular aortic stenosis. No aortic regurgitation is present. Pulmonic Valve There is no pulmonic valvular regurgitation. Great Vessels The aortic root is normal size. Pericardium/Pleura There is no pericardial effusion. Interpretation Summary The left ventricular size, thickness and function are normal The right ventricle is normal in size and function. Mild valvular aortic stenosis. MD Aris Pennington 10/02/2018 01:17 PM
[2018-10-02 15:16] LABS: GLUCOSE,RANDOM 333 mg/dL (74-106)
[2018-10-02] MEDS ORDERED: SODIUM CHLORIDE 1,000 ML IV SCH (16:15)
--- NOTE | 2018-10-02 19:34 | PN ---
Progress Note, Physician History of Present Illness: sleepy, occ head nod to left , poorly arousable noted to have Seizure today , was empirically started on Keppra A1c >10 MRI BRAIN IMPRESSION. There is no evidence of abnormal restricted diffusion in the brain to suggest acute or subacute infarction. Marked supratentorial diffuse chronic white matter microangiopathic ischemic changes, gliosis. n. Chronic microbleed see noted in bilateral basal, thalami, body of the left caudate nucleus. Scattered supratentorial chronic microbodies are noted in the cortex, subcortical white matter. - Current Medication List Current Medications: Active Medications Amlodipine Besylate (Norvasc -) 10 mg PO DAILY [facility] Last Admin: 10/02/18 12:42 Dose: 10 mg Aspirin (Ecotrin -) 81 mg PO DAILY [facility] Last Admin: 10/02/18 12:43 Dose: 81 mg Atorvastatin Calcium (Lipitor -) 40 mg PO HS [facility] Last Admin: 10/01/18 21:49 Dose: 40 mg Docusate Sodium (Colace -) 100 mg PO TID [facility] Last Admin: 10/02/18 15:00 Dose: 100 mg Ceftriaxone Sodium 1 gm/ (Dextrose) 50 mls @ 100 mls/hr IVPB DAILY [facility]; Protocol Last Admin: 10/02/18 12:32 Dose: 100 mls/hr Sodium Chloride (Normal Saline -) 1,000 mls @ 150 mls/hr IV ASDIR [facility] Stop: 10/02/18 22:14 Last Admin: 10/02/18 16:23 Dose: 150 mls/hr Insulin Aspart (Novolog Vial Sliding Scale -) 1 vial SQ ACHS [facility]; Protocol Last Admin: 10/02/18 17:02 Dose: Not Given Pantoprazole Sodium (Protonix -) 40 mg PO DAILY [facility] Last Admin: 10/02/18 12:43 Dose: 40 mg Polyethylene Glycol (Miralax (For Daily Use) -) 17 gm PO DAILY [facility] Last Admin: 10/02/18 10:00 Dose: Not Given Valsartan (Diovan -) 320 mg PO DAILY [facility] Last Admin: 10/02/18 12:43 Dose: 320 mg - Objective Vital Signs: Vital Signs Temperature 98.2 F 10/02/18 14:05 Pulse Rate 102 H 10/02/18 14:05 Respiratory Rate 18 10/02/18 14:05 Blood Pressure 128/82 10/02/18 14:05 O2 Sat by Pulse Oximetry (%) 92 L 10/02/18 09:00 Labs: CBC, BMP 10/02/18 10:45 10/02/18 10:45 Problem List - Problems (1) Gait abnormality Code(s): R26.9 - UNSPECIFIED ABNORMALITIES OF GAIT AND MOBILITY (2) UTI (urinary tract infection) Code(s): N39.0 - URINARY TRACT INFECTION, SITE NOT SPECIFIED Qualifiers: Urinary tract infection type: site unspecified Hematuria presence: without hematuria Qualified Code(s): N39.0 - Urinary tract infection, site not specified Assessment/Plan 83 year old male with a significant past medical history of HTN, NIDDM 2, and mild dementia, who presents to the ED with complaint of headache, malaise and collapse last night. She states her symptoms started about a week ago, including difficulty walking and urinary/bowel incontinence. The patient states her fall was unwitnessed yesterday but patient denies hitting head or LOC. She denies any complaints at this time. The patient denies chest pain, shortness of breath, headache and dizziness. The patient denies fever, chills, nausea, vomit, diarrhea and constipation. The patient denies dysuria, frequency, urgency and hematuria. 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, UTI, + left sided field cut and drift suggest new /subacute R posterior ischemic event MRI shows chronic white matter changes , no new acute stroke no nuchal rigidity, fever or white count argues against meningitis + UTI though unclear if would cause SZ ? r/o recurrent seizures -- INC JEAN PIERRE 1000BID check EEG if no change will arrange in LP in AM DM management FU Lactic acid will move to ICU for monitoring , D/W DR JO D/W PMD DR GORE
[2018-10-02] MEDS: ATORVASTATIN CA 40 MG TABLET (FP) PO SCH (21:12)
[2018-10-02] MEDS: levETIRAcetam 500 MG/5 ML INJECTION VIAL IVPB SCH (21:13)
--- NOTE | 2018-10-02 21:54 | PN ---
Progress Note, Physician Chief Complaint: DANIEL History of Present Illness: Patient is an 83 yr old female with PMHx DM, HTN, HLD with gradually worsening dementia over the past several months was brought to the ED for DANIEL. She has been non-compliant with meds and appointment over the past year. Her daughters report confusion and (L) visual neglect for the past few days. Yesterday, had felt weak and was brought ot the ED. Hospital course significant for w/Up ? CVA. Started on empiric antibiotics. Today, noted with seizure activity and given Rx. Developed fever (was told T 100 - but not documented?) Now, lethargic ? post-ictal. - Current Medication List Current Medications: Active Medications Amlodipine Besylate (Norvasc -) 10 mg PO DAILY [facility] Last Admin: 10/02/18 12:42 Dose: 10 mg Aspirin (Ecotrin -) 81 mg PO DAILY [facility] Last Admin: 10/02/18 12:43 Dose: 81 mg Atorvastatin Calcium (Lipitor -) 40 mg PO HS [facility] Last Admin: 10/02/18 21:12 Dose: Not Given Docusate Sodium (Colace -) 100 mg PO TID [facility] Last Admin: 10/02/18 21:12 Dose: Not Given Ceftriaxone Sodium 1 gm/ (Dextrose) 50 mls @ 100 mls/hr IVPB DAILY [facility]; Protocol Last Admin: 10/02/18 12:32 Dose: 100 mls/hr Sodium Chloride (Normal Saline -) 1,000 mls @ 150 mls/hr IV ASDIR [facility] Stop: 10/02/18 22:14 Last Admin: 10/02/18 16:23 Dose: 150 mls/hr Insulin Aspart (Novolog Vial Sliding Scale -) 1 vial SQ ACHS [facility]; Protocol Last Admin: 10/02/18 21:25 Dose: 2 unit Levetiracetam (Keppra Injection -) 750 mg IVPB BID [facility] Last Admin: 10/02/18 21:13 Dose: 750 mg Pantoprazole Sodium (Protonix -) 40 mg PO DAILY [facility] Last Admin: 10/02/18 12:43 Dose: 40 mg Polyethylene Glycol (Miralax (For Daily Use) -) 17 gm PO DAILY [facility] Last Admin: 10/02/18 10:00 Dose: Not Given Valsartan (Diovan -) 320 mg PO DAILY [facility] Last Admin: 10/02/18 12:43 Dose: 320 mg - Objective Vital Signs: Vital Signs Temperature 98.2 F 10/02/18 17:00 Pulse Rate 85 10/02/18 17:00 Respiratory Rate 18 10/02/18 17:00 Blood Pressure 152/77 10/02/18 17:00 O2 Sat by Pulse Oximetry (%) 92 L 10/02/18 09:00 Constitutional: Yes: No Distress Eyes: Yes: PERRL Neck: Yes: Supple Cardiovascular: Yes: Regular Rate and Rhythm Respiratory: Yes: CTA Bilaterally Gastrointestinal: Yes: Normal Bowel Sounds, Soft Neurological: Yes: Lethargy (? (L) sided swaying of head) Labs: CBC, BMP 10/02/18 10:45 10/02/18 10:45 Problem List - Problems (1) Altered mental status, unspecified Code(s): R41.82 - ALTERED MENTAL STATUS, UNSPECIFIED (2) Diabetes mellitus Code(s): E11.9 - TYPE 2 DIABETES MELLITUS WITHOUT COMPLICATIONS (3) Hypertension Code(s): I10 - ESSENTIAL (PRIMARY) HYPERTENSION (4) UTI (urinary tract infection) Code(s): N39.0 - URINARY TRACT INFECTION, SITE NOT SPECIFIED Qualifiers: Urinary tract infection type: site unspecified Hematuria presence: without hematuria Qualified Code(s): N39.0 - Urinary tract infection, site not specified Assessment/Plan Pt with DM, HTN, HLD and MS change Seizures ? MERCHANDISING MANAGER infection - encephalitis Neuro w/up in progress. For transfer to ICU. Cont CTX for now. Would need LP. Further recommendations to be made based on LP. Would consider broadening Rx based on LP (Acyclovir) Discussed with Dr. Barahona
[2018-10-02] MEDS ORDERED: levETIRAcetam 500 MG/5 ML INJECTION VIAL IVPB SCH (22:00)
--- NOTE | 2018-10-03 02:13 | CONSULT ---
Consult Consult Specialty:: ICU Referred by:: [place] Reason for Consultation:: seizure, abnormal MRI - History of Present Illness Chief Complaint: seizure History of Present Illness: pt is lethargic, not cooperating with exam or interview. chart reviewed for HPI and pt information. 83 yo woman with HTN and NIDDM2, recurrent UTIs, with h/a, malaise for past few weeks a/w difficulty walking and urinary and bowel incontinence, presented to ED due to unwitnessed fall without head trauma. as per PCP at baseline patient has minor dementia but is aao x 3. here she is aao x 2. Usually she ambulates well with a cane and lives with family. Family is suspicious she may not be compliant with home medication. She had a seizure this morning treated with empiric keppra and was found to have + left sided field cut and drift suggestive of new /subacute R posterior ischemic event on neurological exam. May require LP in the morning if no improvement overnight. on my repeat evaluation pt has clear speech, oriented to person, and the month of her birthday but not her date or year. says she is in [place] but unsure where she is, not following all commands, intermittently neglects her left side, would not turn her to the left when asked but turned with fingersnaps to the left ear, would not raise her left arm to command but retracted to painful stimuli and with repeated request raised her left arm but would not maintain it elevated, same in the LLE. would not follow finger test to the left. by the end of the exam she was using her left arm to lift herself in the bed and attempting to stand to use the bathroom. would not repeat after me and 0/3 items in short-term recall. speech was clear, facial symmetry, jkae. 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 No: CHF, IN Pulmonary: No: Asthma, Cancer, COPD Gastrointestinal: No: Cancer Renal/: No: Renal Inusuff Endocrine: Yes: Diabetes Mellitus - Alcohol/Substance Use Hx Alcohol Use: No - Smoking History Smoking history: Never smoked Have you smoked in the past 12 months: No - Social History Usual Living Arrangement: With Child (lives with daughter in duplex with 1 step to enter and 12-14 steps to bedroom) ADL: Independent (previously Independent in ADLs, and ambulated in community with [place]) History of Recent Travel: No Home Medications - Allergies Allergies/Adverse Reactions: Allergies Allergy/AdvReac Type Severity Reaction Status Date / Time No Known Allergies Allergy Verified 01/02/17 17:37 - Home Medications Home Medications: Ambulatory Orders Metformin HCl [Glucophage] 1,000 mg PO ASDIR 01/02/17 Pravastatin Sodium 10 mg PO ASDIR 01/02/17 Amlodipine Bes/Olmesartan Med [Amlodipine-Olmesartan 10-40 mg] 1 each PO DAILY 09/30/18 Pantoprazole Sodium [Protonix -] 20 mg PO DAILY 09/30/18 Review of Systems Unable to obtain ROS, reason: pt noncooperative Physical Exam Vital Signs: Vital Signs Temperature 98.4 F 10/03/18 02:00 Pulse Rate 58 L 10/03/18 02:00 Respiratory Rate 16 10/03/18 02:00 Blood Pressure 103/59 L 10/03/18 02:00 O2 Sat by Pulse Oximetry (%) 92 L 10/02/18 21:00 Constitutional: Yes: Calm Eyes: Yes: Conjunctiva Clear, PERRL. No: Sclera Icterus HENT: Yes: Atraumatic, Normocephalic Neck: Yes: Supple, Trachea Midline. No: Tenderness, Thyromegaly Cardiovascular: Yes: Regular Rate and Rhythm, S1, S2 Respiratory: Yes: Regular, CTA Bilaterally Gastrointestinal: Yes: Normal Bowel Sounds, Soft Extremities: Yes: WNL Edema: No Peripheral Pulses WNL: Yes Integumentary: Yes: WNL Neurological: Yes: Alert, Confusion, Other (facial symmetry, withdraws to pain in all extremities, spontaneosly moving all extremities but is not following commands or answering questions appropriately). No: Oriented ...Motor Strength: LUE (4/5 hand dye weigher helper), LLE (4/5 hip extension), RUE (4/5 hand dye weigher helper), RLE (4/5 hip extension) Labs: CBC, BMP 10/02/18 10:45 10/02/18 10:45 Assessment/Plan 83 yr old woman with midl dementia, HTN, DM presents s/p fall being treated for UTI now being monitored in the ICU for AMS and new seizure with concern for acute CVA or other infectious cause of neurological findings. Neuro - alert but not oriented, left sided neglect - EEG to evaluate for recurrent seizure, keppra 750mg IVPB BID empirically - may require LP for further evaluation if no improvement - consult for neuro- Dr. Barahona Cardiovascular - HTN, CAD - continue lipitor, diovan and norvasc home regimen Renal - JIGAR - IVF, repeat labs - Fluids, electrolytes, nutrition (FEN) - NS, replete prn, diabetic diet - Infectious disease - UTI - ceftriaxone IV pending bld and urine cx - Hematology - normocytic anemia - trend h/h - Endocrine - DM(uncontrolled A1c 10.4) - NISS, BGM GI - constipation - continue home regimen prn - Prophylaxis GI - protonix Activity - evaluated by PM&R, appreciate recommendations for PT
[2018-10-03 06:18] LABS: BASO % 0.5 % (0-2.0); EOS % 1.7 % (0-4.5); HEMATOCRIT 29.2 % (32.4-45.2); HEMOGLOBIN 9.8 GM/dL (10.7-15.3); LYMPH % 12.4 % (8-40); MCH 29.6 pg (25.7-33.7); MCHC 33.6 g/dl (32.0-36.0); MEAN CELL VOLUME 87.9 fl (80-96); MEAN PLT VOLUME 8.8 fl (7.5-11.1); NEUT % 76.4 % (42.8-82.8); PLATELET COUNT 194 K/MM3 (134-434); RBC 3.32 M/mm3 (3.60-5.2); RDW 15.4 % (11.6-15.6); WHITE BLOOD COUNT 6.7 K/mm3 (4.0-10.0)
[2018-10-03] MEDS: DOCUSATE SODIUM 100 MG CAPSULE (FP) PO SCH ×3 (06:33→21:42)
[2018-10-03] MEDS: INSULIN SLIDING SCALE (NOVOLOG) 1 VIAL SQ SCH ×4 (06:34→22:21)
[2018-10-03 06:47] LABS: ANION GAP 10 MMOL/L (8-16); BLOOD UREA NITROGEN 23 mg/dL (7-18); CALCIUM 8.2 mg/dL (8.5-10.1); CHLORIDE 106 mmol/L (98-107); CO2 23 mmol/L (21-32); CREATININE 1.4 mg/dL (0.55-1.3); GLUCOSE,RANDOM 100 mg/dL (74-106); POTASSIUM 3.6 mmol/L (3.5-5.1); SODIUM 139 mmol/L (136-145)
[2018-10-03 08:24] LABS: PHOSPHOROUS 3.9 mg/dL (2.5-4.9)
[2018-10-03] MEDS ORDERED: POTASSIUM CHLORIDE TABS 10 MEQ TABLET.ER (FP) PO ONE (09:13)
[2018-10-03] MEDS ORDERED: DEXTROSE 5%-WATER - 50 ML IVPB ONE (09:17)
[2018-10-03] MEDS ORDERED: cefTRIAXone SODIUM 1 GM VIAL ONE (09:17)
[2018-10-03] MEDS: amLODIPine BESYLATE 10 MG TABLET (FP) PO SCH (09:21)
[2018-10-03] MEDS: PANTOPRAZOLE 40 MG TABLET (FP) PO SCH (09:21)
[2018-10-03] MEDS: VALSARTAN 160 MG TABLET (UD) PO SCH (09:21)
[2018-10-03] MEDS: SODIUM CHLORIDE 1,000 ML IV SCH ×2 (09:22→23:50)
[2018-10-03] MEDS: ASPIRIN COATED 81 MG TABLET.EC PO SCH (09:24)
[2018-10-03] MEDS: CEFTRIAXONE 1 GM in DEXTROSE 5%-WATER - 50 ML IVPB SCH (09:24)
[2018-10-03] MEDS: levETIRAcetam 500 MG/5 ML INJECTION VIAL IVPB SCH ×2 (09:24→21:42)
[2018-10-03] MEDS ORDERED: POTASSIUM CHLORIDE ORAL LIQUID 20 MEQ/15 ML PO ONE (09:41)
[2018-10-03] MEDS: POLYETHYLENE GLYCOL 3350 119 GM BTL PO SCH (09:44)
--- NOTE | 2018-10-03 11:55 | PN ---
Teaching Attending Note Name of Resident: Holly Ayala ATTENDING PHYSICIAN STATEMENT I saw and evaluated the patient. I reviewed the resident's note and discussed the case with the resident. I agree with the resident's findings and plan as documented. SUBJECTIVE: Patient seen and examined in the ICU. More awake and alert. Able to respond to questions appropriately. No pressors. No DANIEL, dizziness, etc. (+) neglect Intake & Output 09/30/18 10/01/18 10/02/18 10/03/18 23:59 23:59 23:59 23:59 Intake Total 560 700 Balance 560 700 Weight 175 lb 175 lb Last Vital Signs Temp Pulse Resp BP Pulse Ox 99.0 F 118 H 26 H 165/99 92 L 10/03/18 10:00 10/03/18 10:00 10/03/18 10:00 10/03/18 10:00 10/03/18 07:25 Active Medications Amlodipine Besylate (Norvasc -) 10 mg PO DAILY [facility] Last Admin: 10/03/18 09:21 Dose: 10 mg Amoxicillin/Clavulanate Potassium (Augmentin - 875mg Tablet) 1 tab PO BID@0800, 1730 [facility] Aspirin (Ecotrin -) 81 mg PO DAILY [facility] Last Admin: 10/03/18 09:24 Dose: Not Given Atorvastatin Calcium (Lipitor -) 40 mg PO HS [facility] Last Admin: 10/02/18 21:12 Dose: Not Given Docusate Sodium (Colace -) 100 mg PO TID [facility] Last Admin: 10/03/18 06:33 Dose: Not Given Sodium Chloride (Normal Saline -) 1,000 mls @ 100 mls/hr IV ASDIR [facility] Last Admin: 10/03/18 09:22 Dose: 100 mls/hr Insulin Aspart (Novolog Vial Sliding Scale -) 1 vial SQ ACHS [facility]; Protocol Last Admin: 10/03/18 11:27 Dose: 4 unit Levetiracetam (Keppra Injection -) 750 mg IVPB BID [facility] Last Admin: 10/03/18 09:24 Dose: 750 mg Pantoprazole Sodium (Protonix -) 40 mg PO DAILY [facility] Last Admin: 10/03/18 09:21 Dose: 40 mg Polyethylene Glycol (Miralax (For Daily Use) -) 17 gm PO DAILY [facility] Last Admin: 02/08/19 09:44 Dose: Not Given Valsartan (Diovan -) 320 mg PO DAILY [facility] Last Admin: 10/03/18 09:21 Dose: 320 mg Constitutional: Yes: Awake and alert, NAD Eyes: Yes: Conjunctiva Clear, PERRL. No: Sclera Icterus HENT: Yes: Atraumatic, Normocephalic Neck: Yes: Supple, Trachea Midline. No: Tenderness, Thyromegaly Cardiovascular: Yes: Regular Rate and Rhythm, S1, S2 Respiratory: Yes: Clear to auscultation Gastrointestinal: Yes: Normal Bowel Sounds, Soft Extremities: Yes: WNL Edema: No Peripheral Pulses WNL: Yes Integumentary: Yes: WNL Neurological: Yes: Awake and alert ...Motor Strength: LUE (4/5 hand pearl hand), LLE (4/5 hip extension), RUE (4/5 hand pearl hand), RLE (4/5 hip extension) Labs: Laboratory Results - last 24 hr 10/02/18 10/02/18 10/02/18 10:45 10:45 10:45 WBC RBC Hgb Hct MCV MCH MCHC RDW Plt Count MPV Absolute Neuts (auto) Neutrophils % Lymphocytes % Monocytes % Eosinophils % Basophils % Nucleated RBC % ESR Sodium Potassium Chloride Carbon Dioxide Anion Gap BUN Creatinine Creat Clearance w eGFR POC Glucometer Random Glucose 333 H* Lactic Acid 6.0 H* Calcium Phosphorus Magnesium Creatine Kinase Creatine Kinase Index CK-MB (CK-2) C-Reactive Protein 6.9 H 10/02/18 10/02/18 10/02/18 12:09 17:00 21:16 WBC RBC Hgb Hct MCV MCH MCHC RDW Plt Count MPV Absolute Neuts (auto) Neutrophils % Lymphocytes % Monocytes % Eosinophils % Basophils % Nucleated RBC % ESR Sodium Potassium Chloride Carbon Dioxide Anion Gap BUN Creatinine Creat Clearance w eGFR POC Glucometer 365 199 218 Random Glucose Lactic Acid Calcium Phosphorus Magnesium Creatine Kinase Creatine Kinase Index CK-MB (CK-2) C-Reactive Protein 10/03/18 10/03/18 10/03/18 05:30 05:30 05:30 WBC 6.7 RBC 3.32 L Hgb 9.8 L Hct 29.2 L MCV 87.9 MCH 29.6 MCHC 33.6 RDW 15.4 Plt Count 194 MPV 8.8 Absolute Neuts (auto) 5.1 Neutrophils % 76.4 Lymphocytes % 12.4 D Monocytes % 9.0 Eosinophils % 1.7 D Basophils % 0.5 Nucleated RBC % 0 ESR Sodium 139 Potassium 3.6 Chloride 106 Carbon Dioxide 23 Anion Gap 10 BUN 23 H Creatinine 1.4 H Creat Clearance w eGFR 35.82 POC Glucometer Random Glucose 100 Lactic Acid 0.8 Calcium 8.2 L Phosphorus Magnesium Creatine Kinase Creatine Kinase Index CK-MB (CK-2) C-Reactive Protein 10/03/18 10/03/18 10/03/18 05:30 05:30 11:21 WBC RBC Hgb Hct MCV MCH MCHC RDW Plt Count MPV Absolute Neuts (auto) Neutrophils % Lymphocytes % Monocytes % Eosinophils % Basophils % Nucleated RBC % ESR 54 H Sodium Potassium Chloride Carbon Dioxide Anion Gap BUN Creatinine Creat Clearance w eGFR POC Glucometer 275 Random Glucose Lactic Acid Calcium Phosphorus 3.9 Magnesium 2.0 Creatine Kinase 181 Creatine Kinase Index 1.1 CK-MB (CK-2) 2.0 C-Reactive Protein Assessment/Plan Resolving AMS: Etiology to be determined: (?) post ictal state (?) Medication induced (?) Toxic metabolic encephalopathy Mild Dementia HTN DM UTI Keppra per Neuro O2 as needed Continue home meds ABX per ID Neuro floor monitoring DVT prophylaxis Dr Baker
--- NOTE | 2018-10-03 12:11 | PN ---
Progress Note (short form) - Note Progress Note: s: no cp sob palps dizzy o: Vital Signs Period Temp Pulse Resp BP Sys/Giron Pulse Ox Last 24 Hr 97.8 F-99.2 F 58-118 16-26 96-168/53-99 92-92 nad no jvd rrr s1s2 no mrg cta bl aao3 no jaundice diaphoresis abd nd pos bs no le e/c/c Current Medications Generic Name Dose Route Start Last Admin Trade Name Freq PRN Reason Stop Dose Admin Amlodipine Besylate 10 mg 10/01/18 10:00 10/03/18 09:21 Norvasc - PO 10 mg DAILY [facility] Administration Amoxicillin/Clavulanate Potassium 1 tab 10/03/18 17:30 Augmentin - 875mg Tablet PO BID@0800,1730 [facility] Aspirin 81 mg 10/01/18 10:00 10/03/18 09:24 Ecotrin - PO Not Given DAILY [facility] Atorvastatin Calcium 40 mg 10/01/18 22:00 10/02/18 21:12 Lipitor - PO Not Given HS [facility] Docusate Sodium 100 mg 10/01/18 06:00 10/03/18 06:33 Colace - PO Not Given TID [facility] Sodium Chloride 1,000 mls @ 100 mls/hr 10/03/18 00:30 10/03/18 09:22 Normal Saline - IV 100 mls/hr ASDIR [facility] Administration Insulin Aspart 1 vial 10/01/18 07:00 10/03/18 11:27 Novolog Vial Sliding Scale - SQ 4 unit ACHS [facility] Administration Protocol Levetiracetam 750 mg 10/02/18 22:00 10/03/18 09:24 Keppra Injection - IVPB 750 mg BID [facility] Administration Pantoprazole Sodium 40 mg 10/01/18 10:00 10/03/18 09:21 Protonix - PO 40 mg DAILY [facility] Administration Polyethylene Glycol 17 gm 10/01/18 10:00 10/03/18 09:44 Miralax (For Daily Use) - PO Not Given DAILY [facility] Valsartan 320 mg 10/01/18 10:00 10/03/18 09:21 Diovan - PO 320 mg DAILY [facility] Administration CBC, BMP 10/03/18 05:30 10/03/18 05:30 cxr: clear lungs ecg: sr, pacs with aberrant conduction, no ischemic changes, nl intervals tele: sr, pacs echo 09/2018: nl lv/rv, mild as a/p: 83 f hx htn, hld, dm, mild dementia here s/p syncope. syncope: -likely related to uti/sepsis -no signs acs or chf htn: -cont home meds hld: -cont statin abnl ecg: -ecg showing sr with pacs with aberrant conduction, likely related to infection/ sepsis -echo with nl lv size/fcn possible cva, seizure: -neuro following -brain mri shows no acute cva : -mild, outpt monitoring
--- NOTE | 2018-10-03 12:40 | PN ---
Progress Note (short form) - Note Progress Note: 83 y/o female found alert and oriented x 2 in ICU. States that she feels better but unaware of having seizures. Vital Signs Period Temp Pulse Resp BP Sys/Giron Pulse Ox Last 24 Hr 97.8 F-99.2 F 58-118 16-26 96-168/53-99 92-92 CBC, BMP 10/03/18 05:30 10/03/18 05:30 HEENT- Normocephalic Neck- Supple Lungs- CTAB Heart- S1/S2 Abd- Soft, nt Ext- No LE edema Active Medications Amlodipine Besylate (Norvasc -) 10 mg PO DAILY [facility] Last Admin: 10/03/18 09:21 Dose: 10 mg Amoxicillin/Clavulanate Potassium (Augmentin - 875mg Tablet) 1 tab PO BID@0800, 1730 [facility] Aspirin (Ecotrin -) 81 mg PO DAILY [facility] Last Admin: 10/03/18 09:24 Dose: Not Given Atorvastatin Calcium (Lipitor -) 40 mg PO HS [facility] Last Admin: 10/02/18 21:12 Dose: Not Given Docusate Sodium (Colace -) 100 mg PO TID [facility] Last Admin: 10/03/18 06:33 Dose: Not Given Sodium Chloride (Normal Saline -) 1,000 mls @ 100 mls/hr IV ASDIR [facility] Last Admin: 10/03/18 09:22 Dose: 100 mls/hr Insulin Aspart (Novolog Vial Sliding Scale -) 1 vial SQ ACHS [facility]; Protocol Last Admin: 10/03/18 11:27 Dose: 4 unit Levetiracetam (Keppra Injection -) 750 mg IVPB BID [facility] Last Admin: 10/03/18 09:24 Dose: 750 mg Pantoprazole Sodium (Protonix -) 40 mg PO DAILY [facility] Last Admin: 10/03/18 09:21 Dose: 40 mg Polyethylene Glycol (Miralax (For Daily Use) -) 17 gm PO DAILY [facility] Last Admin: 10/03/18 09:44 Dose: Not Given Valsartan (Diovan -) 320 mg PO DAILY [facility] Last Admin: 10/03/18 09:21 Dose: 320 mg Assmt/Plan #Sz Keppra 1000 mg BID MRI/MRA- no acute CVA Neuro following Transferred to ICU yest #UTI Cont IV antibiotics, per ID #DM continue sliding scale #HTN Cont Valsartan and Norvasc Problem List - Problems (1) UTI (urinary tract infection) Code(s): N39.0 - URINARY TRACT INFECTION, SITE NOT SPECIFIED Qualifiers: Urinary tract infection type: site unspecified Hematuria presence: without hematuria Qualified Code(s): N39.0 - Urinary tract infection, site not specified (2) Altered mental status, unspecified Code(s): R41.82 - ALTERED MENTAL STATUS, UNSPECIFIED (3) Diabetes mellitus Code(s): E11.9 - TYPE 2 DIABETES MELLITUS WITHOUT COMPLICATIONS (4) Hypertension Code(s): I10 - ESSENTIAL (PRIMARY) HYPERTENSION (5) Gait abnormality Code(s): R26.9 - UNSPECIFIED ABNORMALITIES OF GAIT AND MOBILITY (6) Near syncope Code(s): R55 - SYNCOPE AND COLLAPSE (7) Fall as cause of accidental injury at home as place of occurrence Code(s): W19.XXXA - UNSPECIFIED FALL, INITIAL ENCOUNTER; Y92.009 - [facility]
--- NOTE | 2018-10-03 13:37 | PN ---
Progress Note (short form) - Note Progress Note: SUBJECTIVE Patient seen and examined at the bedside. No acute complaints. OBJECTIVE Vital Signs Temperature 99.0 F 10/03/18 10:00 Pulse Rate 118 H 10/03/18 10:00 Respiratory Rate 26 H 10/03/18 10:00 Blood Pressure 165/99 10/03/18 10:00 O2 Sat by Pulse Oximetry (%) 92 L 10/03/18 07:25 General: Awake, alert, in no acute distress Head: No signs of trauma Eyes: EOMI, sclera anicteric ENT: Moist mucus membranes Neck: Normal ROM, supple Lungs: Lungs clear, Normal breath sounds Cardio: Regular rhythm, S1 and S2 present Abdomen: Soft, nontender. No guarding, no rebound, no masses Extremities: Normal range of motion, Distal pulses present SKIN: Warm, Dry, normal turgor Neurologic: following commands and answering questions appropriately, but with left hemineglect ASSESSMENT 83yo with PMH of HTN, DM, dementia s/p fall found to have and treated for UTI. Witnessed seizure episode on 10/02/18, concerning for acute CVA vs. infectious etiology. PLAN NEURO Altered mental status, ischemic event vs. infection vs. medication vs. toxic metabolic encephalopathy vs. post-ictal Seizure, possibly recurrent Fall -EEG pending -MRI with no findings for new acute stroke -Keppra for prophylaxis -Neuro following -PMR following CV Normocytic anemia History HTN, CAD -Follow h/h -ECHO on 10/02/18: mild aortic stenosis, normal RV and LV -Continue home lipitor, diovan, and norvasc -Cardiology following RENAL JIGAR Cr: 1.7---->1.4 NS @100cc/hr GI History of constipation -colace, miralax ID UTI -Abx switched to Augmentin due to insensitivity to Rocephin -Urine culture with E. coli -Blood Cultures NGTD ENDO History of diabetes BGM, NISS FEN NS @100cc/hr Follow electrolytes, replete as needed Diabetic diet PPX VTE: SCDs GI: Prontoix Disposition: Patient safe for transfer to 4W/4S neuro floor monitoring
[2018-10-03] MEDS ORDERED: PT OWN MED DRAWER 7, Y5N ONE (17:11)
[2018-10-03] MEDS: AMOX TR/POT CLAV 875MG/125MG TABLETS (FP) PO SCH (17:12)
[2018-10-03] MEDS ORDERED: CEFOTAXIME SODIUM 500 MG in DEXTROSE 5%-WATER - 50 ML IVPB SCH (18:00)
--- NOTE | 2018-10-03 18:46 | PN ---
Progress Note (short form) - Note Progress Note: Altered mental status, ischemic event vs. infection vs. medication vs. toxic metabolic encephalopathy vs. post-ictal Seizure, possibly recurrent. Tonight appears markedly improved, eating dinner, no further seizures documented, she is on Keppra 750mg BID. States she feels well, is alert, oriented x 2. From chart review she appears to have recurrent sz ,likely triggered by metabolic abn. but given underlying dementia and possible persistent triggers it is safe to cont. on AED -Would cont Keppra 750mg bid, if further sz. can increase to 1000mg bid. -Please call us if needed.
[2018-10-03] MEDS: ATORVASTATIN CA 40 MG TABLET (FP) PO SCH (21:42)
[2018-10-04] MEDS: DOCUSATE SODIUM 100 MG CAPSULE (FP) PO SCH ×3 (06:33→21:46)
[2018-10-04] MEDS: INSULIN SLIDING SCALE (NOVOLOG) 1 VIAL SQ SCH ×4 (06:33→22:09)
[2018-10-04 07:07] LABS: BASO % 0.4 % (0-2.0); EOS % 2.6 % (0-4.5); HEMATOCRIT 28.5 % (32.4-45.2); HEMOGLOBIN 9.6 GM/dL (10.7-15.3); LYMPH % 12.4 % (8-40); MCH 29.6 pg (25.7-33.7); MCHC 33.6 g/dl (32.0-36.0); MEAN CELL VOLUME 88.3 fl (80-96); MEAN PLT VOLUME 8.9 fl (7.5-11.1); MONO % 10.4 % (3.8-10.2); NEUT % 74.2 % (42.8-82.8); PLATELET COUNT 202 K/MM3 (134-434); RBC 3.23 M/mm3 (3.60-5.2); RDW 15.8 % (11.6-15.6); WHITE BLOOD COUNT 6.2 K/mm3 (4.0-10.0)
[2018-10-04 07:27] LABS: ALBUMIN 2.8 g/dl (3.4-5.0); ALK PHOS 65 U/L (45-117); ANION GAP 8 MMOL/L (8-16); BILIRUBIN,TOTAL 0.6 mg/dL (0.2-1); BLOOD UREA NITROGEN 19 mg/dL (7-18); CALCIUM 8.4 mg/dL (8.5-10.1); CHLORIDE 111 mmol/L (98-107); CO2 21 mmol/L (21-32); CREATININE 1.2 mg/dL (0.55-1.3); GLUCOSE,RANDOM 164 mg/dL (74-106); PHOSPHOROUS 3.3 mg/dL (2.5-4.9); POTASSIUM 3.9 mmol/L (3.5-5.1); SGOT/AST 7 U/L (15-37); SGPT/ALT 10 U/L (13-61); SODIUM 140 mmol/L (136-145); TOT PROT 6.1 g/dl (6.4-8.2)
--- NOTE | 2018-10-04 10:11 | PN ---
Progress Note (short form) - Note Progress Note: s: no cp sob palps dizzy o: Vital Signs Period Temp Pulse Resp BP Sys/Giron Pulse Ox Last 24 Hr 98.3 F-99.7 F 78-99 14-24 140-159/74-93 94 nad no jvd rrr s1s2 no mrg cta bl aao3 no jaundice diaphoresis abd nd pos bs no le e/c/c Current Medications Generic Name Dose Route Start Last Admin Trade Name Nisha PRN Reason Stop Dose Admin Amlodipine Besylate 10 mg 10/01/18 10:00 10/03/18 09:21 Norvasc - PO 10 mg DAILY [facility]ZA Administration Amoxicillin/Clavulanate Potassium 1 tab 10/03/18 17:30 10/03/18 17:12 Augmentin - 875mg Tablet PO 1 tab BID@0800,1730 [facility] Administration Aspirin 81 mg 10/01/18 10:00 10/03/18 09:24 Ecotrin - PO Not Given DAILY [facility]ZA Atorvastatin Calcium 40 mg 10/01/18 22:00 10/03/18 21:42 Lipitor - PO 40 mg HS [facility] Administration Docusate Sodium 100 mg 10/01/18 06:00 10/04/18 06:33 Colace - PO 100 mg TID [facility] Administration Sodium Chloride 1,000 mls @ 100 mls/hr 10/03/18 00:30 10/03/18 23:50 Normal Saline - IV 100 mls/hr ASDIR [facility] Administration Insulin Aspart 1 vial 10/01/18 07:00 10/04/18 06:33 Novolog Vial Sliding Scale - SQ Not Given ACHS [facility] Protocol Levetiracetam 750 mg 10/02/18 22:00 10/03/18 21:42 Keppra Injection - IVPB 750 mg BID [facility]ZA Administration Pantoprazole Sodium 40 mg 10/01/18 10:00 10/03/18 09:21 Protonix - PO 40 mg DAILY [facility] Administration Polyethylene Glycol 17 gm 10/01/18 10:00 10/03/18 09:44 Miralax (For Daily Use) - PO Not Given DAILY [facility]ZA Valsartan 320 mg 10/01/18 10:00 10/03/18 09:21 Diovan - PO 320 mg DAILY [facility] Administration CBC, BMP 10/04/18 05:30 10/04/18 05:30 cxr: clear lungs ecg: sr, pacs with aberrant conduction, no ischemic changes, nl intervals tele: sr, pacs echo 09/2018: nl lv/rv, mild as a/p: 83 f hx htn, hld, dm, mild dementia here s/p syncope. syncope: -likely related to uti/sepsis -no signs acs or chf htn: -cont home meds hld: -cont statin abnl ecg: -ecg showing sr with pacs with aberrant conduction, likely related to infection/ sepsis -echo with nl lv size/fcn possible cva, seizure: -neuro following -brain mri shows no acute cva : -mild, outpt monitoring dc tele
[2018-10-04] MEDS: levETIRAcetam 500 MG/5 ML INJECTION VIAL IVPB SCH ×2 (11:54→21:46)
[2018-10-04] MEDS: ASPIRIN COATED 81 MG TABLET.EC PO SCH (11:54)
[2018-10-04] MEDS: AMOX TR/POT CLAV 875MG/125MG TABLETS (FP) PO SCH ×2 (11:54→17:50)
[2018-10-04] MEDS: POLYETHYLENE GLYCOL 3350 119 GM BTL PO SCH (11:55)
[2018-10-04] MEDS: PANTOPRAZOLE 40 MG TABLET (FP) PO SCH (11:55)
[2018-10-04] MEDS: VALSARTAN 160 MG TABLET (UD) PO SCH (11:55)
[2018-10-04] MEDS: amLODIPine BESYLATE 10 MG TABLET (FP) PO SCH (11:55)
--- NOTE | 2018-10-04 14:43 | EKG ---
Test Reason : Blood Pressure : / mmHG Vent. Rate : 081 BPM Atrial Rate : 081 BPM P-R Int : 106 ms QRS Dur : 082 ms QT Int : 390 ms P-R-T Axes : 040 -38 184 degrees QTc Int : 453 ms SINUS RHYTHM WITH SHORT ID WITH PREMATURE ATRIAL COMPLEXES WITH ABERRANT CONDUCTION LEFT AXIS DEVIATION MINIMAL VOLTAGE CRITERIA FOR LVH, MAY BE NORMAL VARIANT NONSPECIFIC T WAVE ABNORMALITY ABNORMAL ECG Confirmed by Nathaniel Boateng MD ([id number]) on 10/04/2018 2:42:55 PM Referred By: Confirmed By:Nathaniel Boateng MD
--- NOTE | 2018-10-04 14:43 | EKG ---
Test Reason : Blood Pressure : / mmHG Vent. Rate : 128 BPM Atrial Rate : 128 BPM P-R Int : 000 ms QRS Dur : 124 ms QT Int : 344 ms P-R-T Axes : 000 -65 033 degrees QTc Int : 502 ms WIDE QRS TACHYCARDIA WITH OCCASIONAL PREMATURE VENTRICULAR COMPLEXES AND FUSION COMPLEXES RIGHT BUNDLE BRANCH BLOCK LEFT ANTERIOR FASCICULAR BLOCK BIFASCICULAR BLOCK MINIMAL VOLTAGE CRITERIA FOR LVH, MAY BE NORMAL VARIANT ABNORMAL ECG Confirmed by Nathaniel Boateng MD ([id number]) on 10/04/2018 2:42:59 PM Referred By: SPENCER GIRON Confirmed By:Nathaniel Boateng MD
--- NOTE | 2018-10-04 17:04 | PN ---
Progress Note (short form) - Note Progress Note: patient seen and examined in room family at bedside case discussed with Dr Torres patient awake / alert / oriented X3 but family reports multiple episodes of confusion Vital Signs Period Temp Pulse Resp BP Sys/Giron Pulse Ox Last 24 Hr 98.3 F-99.1 F 73-99 18-24 144-167/78-93 94 neck supple heart S1/S2reg lungs clear bilat abd soft non tender ext no edema / no calf tenderness CBC, BMP 10/04/18 05:30 10/04/18 05:30 CRX -- clear EKG --SR / PACs/ no ST-T changes TELE Sinus / APCs echo 09/2018: nl lv/rv, mild as Microbiology 09/30/18 16:30 Blood - Peripheral Venous Blood Culture - Preliminary NO GROWTH OBTAINED AFTER 96 HOURS, INCUBATION TO CONTINUE FOR 1 DAYS. 09/30/18 16:30 Blood - Peripheral Venous Blood Culture - Preliminary NO GROWTH OBTAINED AFTER 96 HOURS, INCUBATION TO CONTINUE FOR 1 DAYS. 09/30/18 16:30 Urine - Urine - Catheterized Urine Culture - Final Escherichia Coli Active Medications Amlodipine Besylate (Norvasc -) 10 mg PO DAILY [facility] Last Admin: 10/04/18 11:55 Dose: 10 mg Amoxicillin/Clavulanate Potassium (Augmentin - 875mg Tablet) 1 tab PO BID@0800, 1730 [facility] Last Admin: 10/04/18 11:54 Dose: 1 tab Aspirin (Ecotrin -) 81 mg PO DAILY [facility] Last Admin: 10/04/18 11:54 Dose: 81 mg Atorvastatin Calcium (Lipitor -) 40 mg PO HS [facility] Last Admin: 10/03/18 21:42 Dose: 40 mg Docusate Sodium (Colace -) 100 mg PO TID [facility] Last Admin: 10/04/18 06:33 Dose: 100 mg Sodium Chloride (Normal Saline -) 1,000 mls @ 100 mls/hr IV ASDIR [facility] Last Admin: 10/03/18 23:50 Dose: 100 mls/hr Insulin Aspart (Novolog Vial Sliding Scale -) 1 vial SQ ACHS [facility]; Protocol Last Admin: 10/04/18 12:18 Dose: 6 unit Levetiracetam (Keppra Injection -) 750 mg IVPB BID [facility] Last Admin: 10/04/18 11:54 Dose: 750 mg Pantoprazole Sodium (Protonix -) 40 mg PO DAILY [facility] Last Admin: 10/04/18 11:55 Dose: 40 mg Polyethylene Glycol (Miralax (For Daily Use) -) 17 gm PO DAILY [facility] Last Admin: 10/04/18 11:55 Dose: Not Given Valsartan (Diovan -) 320 mg PO DAILY [facility] Last Admin: 10/04/18 11:55 Dose: 320 mg Assment / plan 83 y/o female with PMH HTN >20yrs / DM >20yr /HLD / mild dementia presents to ER after sustaining Fall / unclear if syncopal episode / LOC? # Fall / near syncope / syncope related to UTI no evidence of cardiac event # DM off PO hypoglycemics due to irregular PO intake - continue sliding scale and will resume PO meds when eating pattern more stable #HTN continue home meds # HLD continue statins # mild dementia / cognitive decline no imaging evidence of CVA possibly related to dementia VS small event new dx seizure - will continue keppra per neurology rec will start exelon for mild dementia and continue out patient Problem List - Problems (1) UTI (urinary tract infection) Code(s): N39.0 - URINARY TRACT INFECTION, SITE NOT SPECIFIED Qualifiers: Urinary tract infection type: site unspecified Hematuria presence: without hematuria Qualified Code(s): N39.0 - Urinary tract infection, site not specified (2) Altered mental status, unspecified Code(s): R41.82 - ALTERED MENTAL STATUS, UNSPECIFIED (3) Diabetes mellitus Code(s): E11.9 - TYPE 2 DIABETES MELLITUS WITHOUT COMPLICATIONS (4) Hypertension Code(s): I10 - ESSENTIAL (PRIMARY) HYPERTENSION (5) Gait abnormality Code(s): R26.9 - UNSPECIFIED ABNORMALITIES OF GAIT AND MOBILITY (6) Near syncope Code(s): R55 - SYNCOPE AND COLLAPSE (7) Fall as cause of accidental injury at home as place of occurrence Code(s): W19.XXXA - UNSPECIFIED FALL, INITIAL ENCOUNTER; Y92.009 - UNSP PLACE IN [facility]SP NON-INSTITUT (PRIVATE) RESIDENCE PLACE
[2018-10-04] MEDS: ATORVASTATIN CA 40 MG TABLET (FP) PO SCH (21:46)
[2018-10-04] MEDS: RIVASTIGMINE TARTRATE 1.5 MG CAPSULE PO SCH (21:57)
[2018-10-05] MEDS ORDERED: HALOPERIDOL LACTATE 5 MG/ML IM ONE (03:45)
[2018-10-05] MEDS: INSULIN SLIDING SCALE (NOVOLOG) 1 VIAL SQ SCH ×4 (06:02→22:28)
[2018-10-05] MEDS: DOCUSATE SODIUM 100 MG CAPSULE (FP) PO SCH ×3 (06:02→22:27)
[2018-10-05 07:30] LABS: BASO % 0.5 % (0-2.0); HEMATOCRIT 31.7 % (32.4-45.2); HEMOGLOBIN 10.9 GM/dL (10.7-15.3); LYMPH % 8.1 % (8-40); MCH 30.4 pg (25.7-33.7); MCHC 34.3 g/dl (32.0-36.0); MEAN CELL VOLUME 88.6 fl (80-96); MEAN PLT VOLUME 8.8 fl (7.5-11.1); MONO % 6.7 % (3.8-10.2); NEUT % 83.7 % (42.8-82.8); PLATELET COUNT 216 K/MM3 (134-434); RBC 3.57 M/mm3 (3.60-5.2); RDW 15.1 % (11.6-15.6); WHITE BLOOD COUNT 7.1 K/mm3 (4.0-10.0)
[2018-10-05 07:56] LABS: ANION GAP 9 MMOL/L (8-16); BLOOD UREA NITROGEN 16 mg/dL (7-18); CALCIUM 8.8 mg/dL (8.5-10.1); CHLORIDE 109 mmol/L (98-107); CO2 21 mmol/L (21-32); CREATININE 1.2 mg/dL (0.55-1.3); GLUCOSE,RANDOM 249 mg/dL (74-106); POTASSIUM 3.9 mmol/L (3.5-5.1); SODIUM 138 mmol/L (136-145)
--- NOTE | 2018-10-05 11:28 | PN ---
Progress Note (short form) - Note Progress Note: s: no cp sob palps dizzy o: Vital Signs Period Temp Pulse Resp BP Sys/Giron Pulse Ox Last 24 Hr 98.1 F-98.5 F 84-114 18-20 148-167/74-97 95 nad no jvd rrr s1s2 no mrg cta bl aao3 no jaundice diaphoresis abd nd pos bs no le e/c/c Current Medications Generic Name Dose Route Start Last Admin Trade Name Nisha PRN Reason Stop Dose Admin Amlodipine Besylate 10 mg 10/01/18 10:00 10/04/18 11:55 Norvasc - PO 10 mg DAILY [facility]ZA Administration Amoxicillin/Clavulanate Potassium 1 tab 10/03/18 17:30 10/04/18 17:50 Augmentin - 875mg Tablet PO 1 tab BID@0800,1730 [facility] Administration Aspirin 81 mg 10/01/18 10:00 10/04/18 11:54 Ecotrin - PO 81 mg DAILY [facility] Administration Atorvastatin Calcium 40 mg 10/01/18 22:00 10/04/18 21:46 Lipitor - PO 40 mg HS [facility] Administration Docusate Sodium 100 mg 10/01/18 06:00 10/05/18 06:02 Colace - PO 100 mg TID [facility] Administration Sodium Chloride 1,000 mls @ 100 mls/hr 10/03/18 00:30 10/03/18 23:50 Normal Saline - IV 100 mls/hr ASDIR [facility] Administration Insulin Aspart 1 vial 10/01/18 07:00 10/05/18 06:02 Novolog Vial Sliding Scale - SQ 4 unit ACHS [facility] Administration Protocol Levetiracetam 750 mg 10/02/18 22:00 10/04/18 21:46 Keppra Injection - IVPB 750 mg BID [facility] Administration Pantoprazole Sodium 40 mg 10/01/18 10:00 10/04/18 11:55 Protonix - PO 40 mg DAILY [facility] Administration Polyethylene Glycol 17 gm 10/01/18 10:00 10/04/18 11:55 Miralax (For Daily Use) - PO Not Given DAILY [facility] Rivastigmine Tartrate 1.5 mg 10/04/18 22:00 10/04/18 21:57 Exelon (Nf) - PO 1.5 mg BID [facility] Administration Valsartan 320 mg 10/01/18 10:00 02/09/19 11:55 Diovan - PO 320 mg DAILY [facility] Administration CBC, BMP 10/05/18 06:00 10/05/18 06:00 cxr: clear lungs ecg: sr, pacs with aberrant conduction, no ischemic changes, nl intervals tele: sr, pacs, brief nsvt/aberrant conduction echo 09/2018: nl lv/rv, mild as a/p: 83 f hx htn, hld, dm, mild dementia here s/p syncope. syncope: -likely related to uti/sepsis -no signs acs or chf htn: -cont home meds hld: -cont statin abnl ecg: -ecg showing sr with pacs with aberrant conduction, likely related to infection/ sepsis -echo with nl lv size/fcn possible cva, seizure: -neuro following -brain mri shows no acute cva : -mild, outpt monitoring dc tele
[2018-10-05] MEDS: RIVASTIGMINE TARTRATE 1.5 MG CAPSULE PO SCH ×2 (12:52→22:27)
[2018-10-05] MEDS: levETIRAcetam 500 MG/5 ML INJECTION VIAL IVPB SCH ×2 (12:52→22:28)
[2018-10-05] MEDS: SODIUM CHLORIDE 1,000 ML IV SCH (12:52)
[2018-10-05] MEDS: amLODIPine BESYLATE 10 MG TABLET (FP) PO SCH (12:53)
[2018-10-05] MEDS: POLYETHYLENE GLYCOL 3350 119 GM BTL PO SCH (12:53)
[2018-10-05] MEDS: ASPIRIN COATED 81 MG TABLET.EC PO SCH (12:53)
[2018-10-05] MEDS: AMOX TR/POT CLAV 875MG/125MG TABLETS (FP) PO SCH ×2 (12:53→19:03)
[2018-10-05] MEDS: VALSARTAN 160 MG TABLET (UD) PO SCH (12:53)
[2018-10-05] MEDS: PANTOPRAZOLE 40 MG TABLET (FP) PO SCH (12:54)
--- NOTE | 2018-10-05 15:10 | PN ---
Progress Note (short form) - Note Progress Note: more awake, still with cognitive issues, (dementia), no more SZ noted BP high A1c >10 MRI BRAIN IMPRESSION. There is no evidence of abnormal restricted diffusion in the brain to suggest acute or subacute infarction. Marked supratentorial diffuse chronic white matter microangiopathic ischemic changes, gliosis. n. Chronic microbleed see noted in bilateral basal, thalami, body of the left caudate nucleus. Scattered supratentorial chronic microbodies are noted in the cortex, subcortical white matter. - Current Medication List Current Medications: Active Medications Amlodipine Besylate (Norvasc -) 10 mg PO DAILY [facility] Last Admin: 10/02/18 12:42 Dose: 10 mg Aspirin (Ecotrin -) 81 mg PO DAILY [facility] Last Admin: 10/02/18 12:43 Dose: 81 mg Atorvastatin Calcium (Lipitor -) 40 mg PO HS [facility] Last Admin: 10/01/18 21:49 Dose: 40 mg Docusate Sodium (Colace -) 100 mg PO TID [facility] Last Admin: 10/02/18 15:00 Dose: 100 mg Ceftriaxone Sodium 1 gm/ (Dextrose) 50 mls @ 100 mls/hr IVPB DAILY [facility]; Protocol Last Admin: 10/02/18 12:32 Dose: 100 mls/hr Sodium Chloride (Normal Saline -) 1,000 mls @ 150 mls/hr IV ASDIR [facility]ZA Stop: 10/02/18 22:14 Last Admin: 10/02/18 16:23 Dose: 150 mls/hr Insulin Aspart (Novolog Vial Sliding Scale -) 1 vial SQ ACHS [facility]; Protocol Last Admin: 10/02/18 17:02 Dose: Not Given Pantoprazole Sodium (Protonix -) 40 mg PO DAILY [facility] Last Admin: 10/02/18 12:43 Dose: 40 mg Polyethylene Glycol (Miralax (For Daily Use) -) 17 gm PO DAILY [facility] Last Admin: 10/02/18 10:00 Dose: Not Given Valsartan (Diovan -) 320 mg PO DAILY [facility] Last Admin: 10/02/18 12:43 Dose: 320 mg - Objective Vital Signs: Vital Signs Temperature 97.9 F 10/05/18 14:00 Pulse Rate 96 H 10/05/18 14:00 Respiratory Rate 20 10/05/18 14:00 Blood Pressure 196/98 H 10/05/18 14:00 O2 Sat by Pulse Oximetry (%) 95 10/04/18 21:00 Labs: CBC, BMP 10/02/18 10:45 10/02/18 10:45 Problem List - Problems (1) Gait abnormality Code(s): R26.9 - UNSPECIFIED ABNORMALITIES OF GAIT AND MOBILITY (2) UTI (urinary tract infection) Code(s): N39.0 - URINARY TRACT INFECTION, SITE NOT SPECIFIED Qualifiers: Urinary tract infection type: site unspecified Hematuria presence: without hematuria Qualified Code(s): N39.0 - Urinary tract infection, site not specified Assessment/Plan 83 year old male with a significant past medical history of HTN, NIDDM 2, and mild dementia, who presents to the ED with complaint of headache, malaise and collapse last night. She states her symptoms started about a week ago, including difficulty walking and urinary/bowel incontinence. The patient states her fall was unwitnessed yesterday but patient denies hitting head or LOC. She denies any complaints at this time. The patient denies chest pain, shortness of breath, headache and dizziness. The patient denies fever, chills, nausea, vomit, diarrhea and constipation. The patient denies dysuria, frequency, urgency and hematuria. 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, UTI, MRI shows chronic white matter changes , no new acute stroke no nuchal rigidity, fever or white count argues against meningitis + UTI though unclear if would cause SZ cont KEPPRA 750BID , change to PO FU EEG BP control DM management D/W PMD DR GORE Problem List - Problems (1) Gait abnormality Code(s): R26.9 - UNSPECIFIED ABNORMALITIES OF GAIT AND MOBILITY (2) UTI (urinary tract infection) Code(s): N39.0 - URINARY TRACT INFECTION, SITE NOT SPECIFIED Qualifiers: Urinary tract infection type: site unspecified Hematuria presence: without hematuria Qualified Code(s): N39.0 - Urinary tract infection, site not specified
[2018-10-05] MEDS ORDERED: cloNIDine HCL 0.1 MG TABLET PO ONE (15:25)
[2018-10-05] MEDS ORDERED: HALOPERIDOL LACTATE 5 MG/ML IM PRN (18:03)
--- NOTE | 2018-10-05 18:09 | PN ---
Progress Note (short form) - Note Progress Note: patient seen and examined in room daughter at bedside - more confused today called last night with agitation and inc confusion required haldol Vital Signs Period Temp Pulse Resp BP Sys/Giron Pulse Ox Last 24 Hr 97.9 F-98.5 F 84-114 18-20 154-196/63-98 95 neck supple heart S1/S2reg lungs clear bilat abd soft non tender ext no edema / no calf tenderness CBC, BMP 10/05/18 06:00 10/05/18 06:00 CBC, BMP 10/04/18 05:30 10/04/18 05:30 CRX -- clear EKG --SR / PACs/ no ST-T changes TELE Sinus / APCs echo 09/2018: nl lv/rv, mild as Microbiology 09/30/18 16:30 Blood - Peripheral Venous Blood Culture - Final NO GROWTH AFTER 5 DAYS INCUBATION 09/30/18 16:30 Blood - Peripheral Venous Blood Culture - Final NO GROWTH AFTER 5 DAYS INCUBATION 09/30/18 16:30 Urine - Urine - Catheterized Urine Culture - Final Escherichia Coli Active Medications Amlodipine Besylate (Norvasc -) 10 mg PO DAILY [facility] Last Admin: 10/05/18 12:53 Dose: 10 mg Amoxicillin/Clavulanate Potassium (Augmentin - 875mg Tablet) 1 tab PO BID@0800, 1730 [facility] Last Admin: 10/05/18 12:53 Dose: 1 tab Aspirin (Ecotrin -) 81 mg PO DAILY [facility] Last Admin: 10/05/18 12:53 Dose: 81 mg Atorvastatin Calcium (Lipitor -) 40 mg PO HS [facility] Last Admin: 10/04/18 21:46 Dose: 40 mg Docusate Sodium (Colace -) 100 mg PO TID [facility] Last Admin: 10/05/18 16:00 Dose: Not Given Haloperidol (Haldol Injection (Fast Acting) -) 2 mg IM Q4H PRN PRN Reason: AGITATION Sodium Chloride (Normal Saline -) 1,000 mls @ 100 mls/hr IV ASDIR [facility] Last Admin: 10/05/18 12:52 Dose: Not Given Insulin Aspart (Novolog Vial Sliding Scale -) 1 vial SQ ACHS [facility]; Protocol Last Admin: 10/05/18 12:54 Dose: 2 unit Levetiracetam (Keppra Injection -) 750 mg IVPB BID [facility] Last Admin: 10/05/18 12:52 Dose: 750 mg Pantoprazole Sodium (Protonix -) 40 mg PO DAILY [facility] Last Admin: 10/05/18 12:54 Dose: 40 mg Polyethylene Glycol (Miralax (For Daily Use) -) 17 gm PO DAILY [facility] Last Admin: 10/05/18 12:53 Dose: Not Given Rivastigmine Tartrate (Exelon (Nf) -) 1.5 mg PO BID [facility] Last Admin: 10/05/18 12:52 Dose: 1.5 mg Valsartan (Diovan -) 320 mg PO DAILY [facility] Last Admin: 10/05/18 12:53 Dose: 320 mg Assment / plan 83 y/o female with PMH HTN >20yrs / DM >20yr /HLD / mild dementia presents to ER after sustaining Fall / unclear if syncopal episode / LOC? # Fall / near syncope / syncope related to UTI no evidence of cardiac event # DM off PO hypoglycemics due to irregular PO intake - continue sliding scale and will resume PO meds when eating pattern more stable #HTN continue home meds # HLD continue statins # mild dementia / cognitive decline no imaging evidence of CVA possibly related to dementia VS small event new dx seizure - will continue keppra per neurology rec will start exelon for mild dementia and continue out patient disposition discussed with daughter -- bedroom in a walk up - unclear if she will be able to do stairs and ambulate safely in the home -- family agreeable to STR they reside near [facility] therefore will prefer site for STR Problem List - Problems (1) UTI (urinary tract infection) Code(s): N39.0 - URINARY TRACT INFECTION, SITE NOT SPECIFIED Qualifiers: Urinary tract infection type: site unspecified Hematuria presence: without hematuria Qualified Code(s): N39.0 - Urinary tract infection, site not specified (2) Altered mental status, unspecified Code(s): R41.82 - ALTERED MENTAL STATUS, UNSPECIFIED (3) Diabetes mellitus Code(s): E11.9 - TYPE 2 DIABETES MELLITUS WITHOUT COMPLICATIONS (4) Hypertension Code(s): I10 - ESSENTIAL (PRIMARY) HYPERTENSION (5) Gait abnormality Code(s): R26.9 - UNSPECIFIED ABNORMALITIES OF GAIT AND MOBILITY (6) Near syncope Code(s): R55 - SYNCOPE AND COLLAPSE (7) Fall as cause of accidental injury at home as place of occurrence Code(s): W19.XXXA - UNSPECIFIED FALL, INITIAL ENCOUNTER; Y92.009 - UNSP PLACE IN [facility]SP [facility]PRIVATE[facility] RESIDENCE PLACE
[2018-10-05] MEDS: ATORVASTATIN CA 40 MG TABLET (FP) PO SCH (22:27)
[2018-10-06] MEDS: DOCUSATE SODIUM 100 MG CAPSULE (FP) PO SCH ×3 (05:19→22:20)
[2018-10-06] MEDS: INSULIN SLIDING SCALE (NOVOLOG) 1 VIAL SQ SCH ×4 (06:40→22:21)
--- NOTE | 2018-10-06 09:29 | PN ---
Progress Note, Physician Chief Complaint: syncope (found on floor) History of Present Illness: no cp, sob, palpitations, presyncope/syncope walked in [place] today she says no cigs - Current Medication List Current Medications: Active Medications Amlodipine Besylate (Norvasc -) 10 mg PO DAILY [facility] Last Admin: 10/05/18 12:53 Dose: 10 mg Amoxicillin/Clavulanate Potassium (Augmentin - 875mg Tablet) 1 tab PO BID@0800, 1730 [facility] Last Admin: 10/05/18 19:03 Dose: 1 tab Aspirin (Ecotrin -) 81 mg PO DAILY [facility] Last Admin: 10/05/18 12:53 Dose: 81 mg Atorvastatin Calcium (Lipitor -) 40 mg PO HS [facility] Last Admin: 10/05/18 22:27 Dose: 40 mg Docusate Sodium (Colace -) 100 mg PO TID [facility] Last Admin: 10/06/18 05:19 Dose: 100 mg Haloperidol (Haldol Injection (Fast Acting) -) 2 mg IM Q4H PRN PRN Reason: AGITATION Last Admin: 10/05/18 23:00 Dose: 2 mg Sodium Chloride (Normal Saline -) 1,000 mls @ 100 mls/hr IV ASDIR [facility] Last Admin: 10/05/18 12:52 Dose: Not Given Insulin Aspart (Novolog Vial Sliding Scale -) 1 vial SQ ACHS [facility]; Protocol Last Admin: 10/06/18 06:40 Dose: 2 unit Levetiracetam (Keppra Injection -) 750 mg IVPB BID [facility] Last Admin: 10/05/18 22:28 Dose: 750 mg Pantoprazole Sodium (Protonix -) 40 mg PO DAILY [facility] Last Admin: 10/05/18 12:54 Dose: 40 mg Polyethylene Glycol (Miralax (For Daily Use) -) 17 gm PO DAILY [facility] Last Admin: 10/05/18 12:53 Dose: Not Given Rivastigmine Tartrate (Exelon (Nf) -) 1.5 mg PO BID [facility] Last Admin: 10/05/18 22:27 Dose: 1.5 mg Valsartan (Diovan -) 320 mg PO DAILY [facility] Last Admin: 10/05/18 12:53 Dose: 320 mg - Objective Vital Signs: Vital Signs Temperature 98.3 F 10/06/18 09:00 Pulse Rate 98 H 10/06/18 09:00 Respiratory Rate 18 10/06/18 09:00 Blood Pressure 140/74 10/06/18 09:00 O2 Sat by Pulse Oximetry (%) 96 10/05/18 21:00 Constitutional: Yes: No Distress, Calm Eyes: No: Sclera Icterus HENT: No: Nasal Congestion Cardiovascular: Yes: Pulse Irregular, S1, S2, Other (PMI non diplaced). No: Gallop, Murmur Respiratory: Yes: CTA Bilaterally. No: Accessory Muscle Use, Rales, Wheezes Gastrointestinal: Yes: Normal Bowel Sounds, Soft. No: Tenderness Musculoskeletal: Yes: Other (No kyphosis) Extremities: No: Cold Edema: No Integumentary: No: Jaundice Neurological: Yes: Alert. No: Seizure Psychiatric: No: Agitated Labs: CBC, BMP 10/05/18 06:00 10/05/18 06:00 Assessment/Plan cxr: clear lungs ecg: sr, pacs with aberrant conduction, no ischemic changes, nl intervals echo 09/2018: nl lv/rv, mild as tele: NSR with freq APCs, runs of PAT. episode of WCT x 14 beats--? VT vs SVT with aberrancy a/p: 83 f hx htn, hld, dm, mild dementia here s/p syncope. syncope: -likely related to uti/sepsis -no signs acs or chf, no signif on echo -tele 10/05 with 14 beat run wide complex tach ? VT vs SVT with aberrancy. in setting of normal LV function (and no other signif structural heart dz), this is very unlikely to carry adverse prognosis as far as prolonged VT leading to syncope or risk of SCD. especially in 83 yo, in whom "idiopathic VT" presenting for first time is exceedingly unlikely. -cont tele at least 24 hrs more to r/o prolonged VT episodes. paroxysmal atrial tach, wide complex tach (SVT with aberrancy vs VT): -asymptomatic runs of PAT on tele. cannot exclude one run of NSVT -start low dose metoprolol succ (25 qd) -K > 4, Mg > 2 (rpt ordered) -echo normal LV function, no signif --plan as above htn: -bp's labile here at times, ? related to agitation -currently moderately elevated -same meds for now, observe trend hld: -cont statin seizure: -neuro following, suspects underlying vascular dementia with decompensation here -on sz meds -brain mri shows no acute cva : -mild, outpt monitoring
[2018-10-06] MEDS ORDERED: PT OWN MED DRAWER 7, Y5N ONE ×2 (09:59→22:04)
[2018-10-06] MEDS: ASPIRIN COATED 81 MG TABLET.EC PO SCH (10:19)
[2018-10-06] MEDS: AMOX TR/POT CLAV 875MG/125MG TABLETS (FP) PO SCH ×2 (10:19→18:17)
[2018-10-06] MEDS: VALSARTAN 160 MG TABLET (UD) PO SCH (10:19)
[2018-10-06] MEDS: levETIRAcetam 500 MG/5 ML INJECTION VIAL IVPB SCH ×2 (10:20→22:16)
[2018-10-06] MEDS: RIVASTIGMINE TARTRATE 1.5 MG CAPSULE PO SCH ×2 (10:20→22:20)
[2018-10-06] MEDS: POLYETHYLENE GLYCOL 3350 119 GM BTL PO SCH (10:20)
[2018-10-06] MEDS: PANTOPRAZOLE 40 MG TABLET (FP) PO SCH (10:21)
[2018-10-06] MEDS: amLODIPine BESYLATE 10 MG TABLET (FP) PO SCH (10:21)
[2018-10-06] MEDS: SODIUM CHLORIDE 1,000 ML IV SCH (10:24)
[2018-10-06] MEDS ORDERED: metoPROLOL SUCCINATE 25 MG TAB.SR.24H (FP) PO SCH (11:15)
[2018-10-06] MEDS: metoPROLOL SUCCINATE 25 MG TAB.SR.24H (FP) PO SCH (12:02)
[2018-10-06 13:48] LABS: ANION GAP 6 MMOL/L (8-16); BLOOD UREA NITROGEN 18 mg/dL (7-18); CALCIUM 8.4 mg/dL (8.5-10.1); CHLORIDE 102 mmol/L (98-107); CO2 25 mmol/L (21-32); CREATININE 1.3 mg/dL (0.55-1.3); MAGNESIUM 1.9 mg/dL (1.8-2.4); SODIUM 134 mmol/L (136-145)
[2018-10-06 13:55] LABS: GLUCOSE,RANDOM 343 mg/dL (74-106)
[2018-10-06] MEDS: ATORVASTATIN CA 40 MG TABLET (FP) PO SCH (22:20)
[2018-10-07] MEDS: DOCUSATE SODIUM 100 MG CAPSULE (FP) PO SCH ×3 (06:12→21:37)
[2018-10-07] MEDS: INSULIN SLIDING SCALE (NOVOLOG) 1 VIAL SQ SCH ×5 (06:12→21:40)
[2018-10-07] MEDS: amLODIPine BESYLATE 10 MG TABLET (FP) PO SCH (09:09)
[2018-10-07] MEDS: POLYETHYLENE GLYCOL 3350 119 GM BTL PO SCH (09:09)
[2018-10-07] MEDS: metoPROLOL SUCCINATE 25 MG TAB.SR.24H (FP) PO SCH (09:10)
[2018-10-07] MEDS: AMOX TR/POT CLAV 875MG/125MG TABLETS (FP) PO SCH ×2 (09:10→17:01)
[2018-10-07] MEDS: levETIRAcetam 500 MG/5 ML INJECTION VIAL IVPB SCH ×2 (09:10→21:37)
[2018-10-07] MEDS: ASPIRIN COATED 81 MG TABLET.EC PO SCH (09:10)
[2018-10-07] MEDS: PANTOPRAZOLE 40 MG TABLET (FP) PO SCH (09:10)
[2018-10-07] MEDS: RIVASTIGMINE TARTRATE 1.5 MG CAPSULE PO SCH ×2 (09:11→21:38)
[2018-10-07] MEDS ORDERED: VALSARTAN 160 MG TABLET (UD) PO SCH (10:00)
--- NOTE | 2018-10-07 10:03 | PN ---
Progress Note (short form) - Note Progress Note: s: no chest pain, palps, dizziness, dyspnea Current Medications Amlodipine Besylate (Norvasc -) 10 mg PO DAILY [facility] Last Admin: 10/07/18 09:09 Dose: 10 mg Amoxicillin/Clavulanate Potassium (Augmentin - 875mg Tablet) 1 tab PO BID@0800, 1730 [facility] Last Admin: 10/07/18 09:10 Dose: 1 tab Aspirin (Ecotrin -) 81 mg PO DAILY [facility] Last Admin: 10/07/18 09:10 Dose: 81 mg Atorvastatin Calcium (Lipitor -) 40 mg PO HS [facility] Docusate Sodium (Colace -) 100 mg PO TID [facility] Haloperidol (Haldol Injection (Fast Acting) -) 2 mg IM Q4H PRN PRN Reason: AGITATION Last Admin: 10/05/18 23:00 Dose: 2 mg Insulin Aspart (Novolog Vial Sliding Scale -) 1 vial SQ ACHS [facility]; Protocol Last Admin: 10/07/18 06:47 Dose: Not Given Levetiracetam (Keppra Injection -) 750 mg IVPB BID [facility] Last Admin: 10/07/18 09:10 Dose: 750 mg Metoprolol Succinate (Toprol Xl -) 25 mg PO DAILY [facility] Last Admin: 10/07/18 09:10 Dose: 25 mg Pantoprazole Sodium (Protonix -) 40 mg PO DAILY [facility] Last Admin: 10/07/18 09:10 Dose: 40 mg Polyethylene Glycol (Miralax (For Daily Use) -) 17 gm PO DAILY [facility] Last Admin: 10/07/18 09:09 Dose: 17 gm Rivastigmine Tartrate (Exelon (Nf) -) 1.5 mg PO BID [facility] Last Admin: 10/07/18 09:11 Dose: 1.5 mg Valsartan (Diovan -) 320 mg PO DAILY [facility] Last Admin: 10/07/18 09:09 Dose: 320 mg - Objective Vital Signs Period Temp Pulse Resp BP Sys/Giron Pulse Ox Last 24 Hr 97.0 F-98.8 F 76-86 18-20 134-156/80-93 98 Constitutional: Yes: No Distress, Calm Eyes: No: Sclera Icterus HENT: No: Nasal Congestion Cardiovascular: Yes: Pulse Irregular, S1, S2, Other (PMI non diplaced). No: Gallop, Murmur Respiratory: Yes: CTA Bilaterally. No: Accessory Muscle Use, Rales, Wheezes Gastrointestinal: Yes: Normal Bowel Sounds, Soft. No: Tenderness Musculoskeletal: Yes: Other (No kyphosis) Extremities: No: Cold Edema: No Integumentary: No: Jaundice Neurological: Yes: Alert. No: Seizure Psychiatric: No: Agitated Assessment/Plan cxr: clear lungs ecg: sr, pacs with aberrant conduction, no ischemic changes, nl intervals echo 09/2018: nl lv/rv, mild as tele: NSR with freq APCs a/p: 83 f hx htn, hld, dm, mild dementia here s/p syncope. syncope: -likely related to uti/sepsis -no signs acs or chf, no signif on echo -tele 10/05 with 14 beat run wide complex tach ? VT vs SVT with aberrancy. in setting of normal LV function (and no other signif structural heart dz), this is very unlikely to carry adverse prognosis as far as prolonged VT leading to syncope or risk of SCD. especially in 83 yo, in whom "idiopathic VT" presenting for first time is exceedingly unlikely. - 10/07: no further VT episodes on tele. stable for discharge from cardiac perspective paroxysmal atrial tach, wide complex tach (SVT with aberrancy vs VT): -asymptomatic runs of PAT on tele. cannot exclude one run of NSVT -start low dose metoprolol succ (25 qd) -K > 4, Mg > 2 (rpt ordered) -echo normal LV function, no signif --plan as above htn: -bp's labile here at times, ? related to agitation -currently moderately elevated -same meds for now, observe trend hld: -cont statin seizure: -neuro following, suspects underlying vascular dementia with decompensation here -on sz meds -brain mri shows no acute cva : -mild, outpt monitoring
--- NOTE | 2018-10-07 10:44 | DS ---
Physical Examination Vital Signs: Vital Signs Temperature 98.2 F 10/07/18 10:00 Pulse Rate 87 10/07/18 10:00 Respiratory Rate 18 10/07/18 10:00 Blood Pressure 150/98 10/07/18 10:00 O2 Sat by Pulse Oximetry (%) 99 10/07/18 09:00 Findings/Remarks: This is an 83 yo M with PMH of HTN and NIDDM2, who presents due to h/a, malaise and collapse last night. Her symptoms started a weeks ago, including difficulty walking and urinary +bowel incontinence; at baseline patient has minor dementia but is aao x 3. At ER she is aao x 2. Usually she ambulates well with a cane and lives with family. Family is suspicious she may not be compliant with home medication. fall was unwitnessed yesterday but patient denies hitting head. She has had uti in the past. She currently denies f/c, h/a, neck pain, n/v/d/c, melena, hematichezia, dysuria, rhinorrhea, cough, sore throat, change in vision , vertigo, tinnitus history obtained from both daughter / both at bedside at time of exam They report slow cognitive decline until just recent months, when confusion and forgetfulness has "increase dramatically." on exam she is oriented X3 and is able to give history but "forgets the details " as per daughters During hospital stay neuro eval reviled suspected seizure activity -- patient was started on Keppra -- which has mary well tolerated. She will have complete work up as out patient -- All imagining found to be negative for acute event ( cva). She completed Abx treatment and started on exelon for cognitive decline. Discussed with family need for STR - as patient lives in 2nd story of home -- family and patient agree to STR. cxr: clear lungs ecg: sr, pacs with aberrant conduction, no ischemic changes, nl intervals echo 09/2018: nl lv/rv, mild as tele: NSR with freq APCs, runs of PAT. episode of WCT x 14 beats (10/05/18 early am)--? VT vs SVT with aberrancy (per Cardio note ) syncope: -likely related to uti/sepsis -no signs acs or chf, no signif on echo -tele 10/05 with 14 beat run wide complex tach ? VT vs SVT with aberrancy. in setting of normal LV function (and no other signif structural heart dz), this is very unlikely to carry adverse prognosis as far as prolonged VT leading to syncope or risk of SCD. especially in 83 yo, in whom "idiopathic VT" presenting for first time is exceedingly unlikely. -cont tele at least 24 hrs more to r/o prolonged VT episodes. paroxysmal atrial tach, wide complex tach (SVT with aberrancy vs VT): -asymptomatic runs of PAT on tele. cannot exclude one run of NSVT -- 10/05/18 -start low dose metoprolol succ (25 qd) 10/06/18 -K > 4, Mg > 2 (rpt ordered) -echo normal LV function, no signif --plan as above htn: -bp's labile here at times, ? related to agitation -currently moderately elevated -same meds for now, observe trend hld: -cont statin seizure: -neuro following, suspects underlying vascular dementia with decompensation here -on sz meds -brain mri shows no acute cva : -mild, outpt monitoring Constitutional: Yes: No Distress, Calm Eyes: Yes: Conjunctiva Clear, EOM Intact HENT: Yes: Atraumatic, Normocephalic Neck: Yes: Supple, Trachea Midline Cardiovascular: Yes: Regular Rate and Rhythm, Murmur Respiratory: Yes: Regular, CTA Bilaterally Gastrointestinal: Yes: Normal Bowel Sounds, Abdomen, Obese ...Rectal Exam: Yes: Deferred Renal/: Yes: WNL Breast(s): Yes: WNL Extremities: No: Calf Tenderness, Deformity Edema: No Peripheral Pulses WNL: Yes Integumentary: Yes: WNL Neurological: Yes: Alert, Oriented, Pre-Existing Deficit ...Motor Strength: WNL Psychiatric: Yes: Alert, Oriented Labs: CBC, BMP 10/05/18 06:00 10/06/18 12:30 Discharge Summary Reason For Visit: URINARY TRACT INFECTION,SYNCOPE Current Active Problems Altered mental status, unspecified (Acute) Diabetes mellitus (Acute) Fall as cause of accidental injury at home as place of occurrence (Acute) Gait abnormality (Acute) Hypertension (Acute) Near syncope (Acute) Sepsis (Acute) UTI (urinary tract infection) (Acute) Condition: Improved - Instructions Referrals: Gregory Virk MD [Primary Care Provider] - [facility] - Home Medications Comprehensive Discharge Medication List: Ambulatory Orders Metformin HCl [Glucophage] 1,000 mg PO ASDIR 01/02/17 Pravastatin Sodium 10 mg PO ASDIR 01/02/17 Amlodipine Bes/Olmesartan Med [Amlodipine-Olmesartan 10-40 mg] 1 each PO DAILY 09/30/18 Pantoprazole Sodium [Protonix -] 20 mg PO DAILY 09/30/18 Keppra 750 mg PO BID Lipitor 40 mg PO q day Toprol 25 mg PO q day exelon 1.5 mg PO BID increase to 3 mg BID in `1 week Valsartan 320 mg PO q DAY
[2018-10-07] MEDS ORDERED: INSULIN (NOVOLOG) ASPART 100 UNITS/ML 10ML VIAL ONE ×2 (11:12→17:00)
[2018-10-07] MEDS ORDERED: PT OWN MED DRAWER 7, Y5N ONE ×2 (11:22→21:26)
[2018-10-07] MEDS ORDERED: ATORVASTATIN CA 40 MG TABLET (FP) PO SCH (22:00)
[2018-10-08] MEDS: DOCUSATE SODIUM 100 MG CAPSULE (FP) PO SCH ×2 (06:38→15:02)
[2018-10-08] MEDS: INSULIN SLIDING SCALE (NOVOLOG) 1 VIAL SQ SCH ×2 (06:45→12:00)
[2018-10-08] MEDS ORDERED: sitaGLIPtin PHOSPHATE 100 MG TABLET (FP) PO SCH (07:00)
[2018-10-08] MEDS: ASPIRIN COATED 81 MG TABLET.EC PO SCH (09:13)
[2018-10-08] MEDS: AMOX TR/POT CLAV 875MG/125MG TABLETS (FP) PO SCH (09:13)
[2018-10-08] MEDS: PANTOPRAZOLE 40 MG TABLET (FP) PO SCH (09:13)
[2018-10-08] MEDS: levETIRAcetam 500 MG/5 ML INJECTION VIAL IVPB SCH (09:13)
[2018-10-08] MEDS: amLODIPine BESYLATE 10 MG TABLET (FP) PO SCH (09:13)
[2018-10-08] MEDS: metoPROLOL SUCCINATE 25 MG TAB.SR.24H (FP) PO SCH (09:14)
[2018-10-08] MEDS: RIVASTIGMINE TARTRATE 1.5 MG CAPSULE PO SCH (09:15)
[2018-10-08] MEDS: POLYETHYLENE GLYCOL 3350 119 GM BTL PO SCH (09:16)
--- NOTE | 2018-10-08 10:28 | PN ---
Progress Note (short form) - Note Progress Note: s: no chest pain, palps, dizziness, dyspnea Current Medications Amlodipine Besylate (Norvasc -) 10 mg PO DAILY [facility] Last Admin: 10/08/18 09:13 Dose: 10 mg Amoxicillin/Clavulanate Potassium (Augmentin - 875mg Tablet) 1 tab PO BID@0800, 1730 [facility] Last Admin: 10/08/18 09:13 Dose: 1 tab Aspirin (Ecotrin -) 81 mg PO DAILY [facility] Last Admin: 10/08/18 09:13 Dose: 81 mg Atorvastatin Calcium (Lipitor -) 40 mg PO HS [facility] Last Admin: 10/07/18 21:37 Dose: 40 mg Docusate Sodium (Colace -) 100 mg PO TID [facility] Last Admin: 10/08/18 06:38 Dose: Not Given Haloperidol (Haldol Injection (Fast Acting) -) 2 mg IM Q4H PRN PRN Reason: AGITATION Last Admin: 10/05/18 23:00 Dose: 2 mg Insulin Aspart (Novolog Vial Sliding Scale -) 1 vial SQ ACHS [facility]; Protocol Last Admin: 10/08/18 06:45 Dose: 2 units Levetiracetam (Keppra Injection -) 750 mg IVPB BID [facility] Last Admin: 10/08/18 09:13 Dose: 750 mg Metoprolol Succinate (Toprol Xl -) 25 mg PO DAILY [facility] Last Admin: 10/08/18 09:14 Dose: 25 mg Pantoprazole Sodium (Protonix -) 40 mg PO DAILY [facility] Last Admin: 10/08/18 09:13 Dose: 40 mg Polyethylene Glycol (Miralax (For Daily Use) -) 17 gm PO DAILY [facility] Last Admin: 10/08/18 09:16 Dose: 17 gm Rivastigmine Tartrate (Exelon (Nf) -) 1.5 mg PO BID [facility] Last Admin: 10/08/18 09:15 Dose: 1.5 mg Sitagliptin Phosphate (Januvia -) 100 mg PO DAILY@0700 [facility] Last Admin: 10/08/18 06:43 Dose: 100 mg - Objective Vital Signs Period Temp Pulse Resp BP Sys/Giron Pulse Ox Last 24 Hr 97.5 F-98.2 F 73-89 18-20 109-157/57-88 96 Constitutional: Yes: No Distress, Calm Eyes: No: Sclera Icterus HENT: No: Nasal Congestion Cardiovascular: Yes: Pulse Irregular, S1, S2, Other (PMI non diplaced). No: Gallop, Murmur Respiratory: Yes: CTA Bilaterally. No: Accessory Muscle Use, Rales, Wheezes Gastrointestinal: Yes: Normal Bowel Sounds, Soft. No: Tenderness Musculoskeletal: Yes: Other (No kyphosis) Extremities: No: Cold Edema: No Integumentary: No: Jaundice Neurological: Yes: Alert. No: Seizure Psychiatric: No: Agitated Assessment/Plan cxr: clear lungs ecg: sr, pacs with aberrant conduction, no ischemic changes, nl intervals echo 09/2018: nl lv/rv, mild as tele: NSR with freq APCs a/p: 83 f hx htn, hld, dm, mild dementia here s/p syncope. syncope: -likely related to uti/sepsis -no signs acs or chf, no signif on echo -tele 10/05 with 14 beat run wide complex tach ? VT vs SVT with aberrancy. in setting of normal LV function (and no other signif structural heart dz), this is very unlikely to carry adverse prognosis as far as prolonged VT leading to syncope or risk of SCD. especially in 83 yo, in whom "idiopathic VT" presenting for first time is exceedingly unlikely. - no further VT episodes on tele. stable for discharge from cardiac perspective paroxysmal atrial tach, wide complex tach (SVT with aberrancy vs VT): -asymptomatic runs of PAT on tele. cannot exclude one run of NSVT -start low dose metoprolol succ (25 qd) -K > 4, Mg > 2 (rpt ordered) -echo normal LV function, no signif --plan as above htn: -bp's labile here at times, ? related to agitation -currently moderately elevated -same meds for now, observe trend hld: -cont statin seizure: -neuro following, suspects underlying vascular dementia with decompensation here -on sz meds -brain mri shows no acute cva : -mild, outpt monitoring
[2018-10-08 10:41] VITALS: PULSE 76
--- NOTE | 2018-10-08 12:43 | PN ---
Progress Note (short form) - Note Progress Note: patient seen and examined in room awaiting disposition cleared by cardio Vital Signs Period Temp Pulse Resp BP Sys/Giron Pulse Ox Last 24 Hr 97.9 F-98.5 F 84-114 18-20 154-196/63-98 95 neck supple heart S1/S2reg lungs clear bilat abd soft non tender ext no edema / no calf tenderness CBC, BMP 10/05/18 06:00 10/05/18 06:00 CBC, BMP 10/04/18 05:30 10/04/18 05:30 CRX -- clear EKG --SR / PACs/ no ST-T changes TELE Sinus / APCs echo 09/2018: nl lv/rv, mild as Microbiology 09/30/18 16:30 Blood - Peripheral Venous Blood Culture - Final NO GROWTH AFTER 5 DAYS INCUBATION 09/30/18 16:30 Blood - Peripheral Venous Blood Culture - Final NO GROWTH AFTER 5 DAYS INCUBATION 09/30/18 16:30 Urine - Urine - Catheterized Urine Culture - Final Escherichia Coli Active Medications Amlodipine Besylate (Norvasc -) 10 mg PO DAILY [facility] Last Admin: 10/08/18 09:13 Dose: 10 mg Aspirin (Ecotrin -) 81 mg PO DAILY [facility] Last Admin: 10/08/18 09:13 Dose: 81 mg Atorvastatin Calcium (Lipitor -) 40 mg PO HS [facility] Last Admin: 10/07/18 21:37 Dose: 40 mg Docusate Sodium (Colace -) 100 mg PO TID [facility] Last Admin: 10/08/18 06:38 Dose: Not Given Haloperidol (Haldol Injection (Fast Acting) -) 2 mg IM Q4H PRN PRN Reason: AGITATION Last Admin: 10/05/18 23:00 Dose: 2 mg Insulin Aspart (Novolog Vial Sliding Scale -) 1 vial SQ ACHS [facility]; Protocol Last Admin: 10/08/18 06:45 Dose: 2 units Levetiracetam (Keppra -) 750 mg PO BID [facility] Metoprolol Succinate (Toprol Xl -) 25 mg PO DAILY [facility] Last Admin: 10/08/18 09:14 Dose: 25 mg Pantoprazole Sodium (Protonix -) 40 mg PO DAILY [facility] Last Admin: 10/08/18 09:13 Dose: 40 mg Polyethylene Glycol (Miralax (For Daily Use) -) 17 gm PO DAILY [facility] Last Admin: 10/08/18 09:16 Dose: 17 gm Rivastigmine Tartrate (Exelon (Nf) -) 1.5 mg PO BID [facility] Last Admin: 10/08/18 09:15 Dose: 1.5 mg Sitagliptin Phosphate (Januvia -) 100 mg PO DAILY@0700 [facility] Last Admin: 10/08/18 06:43 Dose: 100 mg Assment / plan 83 y/o female with PMH HTN >20yrs / DM >20yr /HLD / mild dementia presents to ER after sustaining Fall / unclear if syncopal episode / LOC? # Fall / near syncope / syncope related to UTI no evidence of cardiac event #seizure activity contnue Keppra PO as out patient no further seizure activity # DM Had been off PO hypoglycemics due to irregular PO intake - will resume PO meds and add Januvia trend renal function - if increased will need to d/c metformin #HTN continue home meds # HLD continue statins # mild dementia / cognitive decline no imaging evidence of CVA possibly related to dementia VS small event new dx seizure - will continue keppra per neurology rec will start exelon for mild dementia and continue out patient inc exelon to 3 mg BID disposition discussed with daughter -- bedroom in a walk up - unclear if she will be able to do stairs and ambulate safely in the home -- family agreeable to STR they reside near [facility] therefore will prefer site for STR Dr Virk informed - Problem List - Problems (1) UTI (urinary tract infection) Code(s): N39.0 - URINARY TRACT INFECTION, SITE NOT SPECIFIED Qualifiers: Urinary tract infection type: site unspecified Hematuria presence: without hematuria Qualified Code(s): N39.0 - Urinary tract infection, site not specified (2) Altered mental status, unspecified Code(s): R41.82 - ALTERED MENTAL STATUS, UNSPECIFIED (3) Diabetes mellitus Code(s): E11.9 - TYPE 2 DIABETES MELLITUS WITHOUT COMPLICATIONS (4) Hypertension Code(s): I10 - ESSENTIAL (PRIMARY) HYPERTENSION (5) Gait abnormality Code(s): R26.9 - UNSPECIFIED ABNORMALITIES OF GAIT AND MOBILITY (6) Near syncope Code(s): R55 - SYNCOPE AND COLLAPSE (7) Fall as cause of accidental injury at home as place of occurrence Code(s): W19.XXXA - UNSPECIFIED FALL, INITIAL ENCOUNTER; Y92.009 - UNSP PLACE IN UNSP [facility] RES[facility]ENCE [facility]
[2018-10-08 14:04] VITALS: BP 144/70; TEMP 98.2
[2018-10-08] MEDS ORDERED: levETIRAcetam 250 MG TABLET (FP) PO SCH (22:00)
== END 2018-10-08 17:05 | DRG 884 ==
LOC: JER 14:43 → JERBED 21:50 → J4W 10-01 14:37 → JICU 10-03 00:17 → J4W 10-03 19:40
PROVIDERS: ADMIT Family Medicine; ATTEND Family Medicine
DX: F01.50 Vascular dementia, unspecified severity, without behavioral disturbance, psychotic disturbance, mood disturbance, and anxiety (principal); N39.0 Urinary tract infection, site not specified; N17.9 Acute kidney failure, unspecified; I47.1 Supraventricular tachycardia; R26.9 Unspecified abnormalities of gait and mobility; I10 Essential (primary) hypertension; E11.65 Type 2 diabetes mellitus with hyperglycemia; R32 Unspecified urinary incontinence; R15.9 Full incontinence of feces; Z79.84 Long term (current) use of oral hypoglycemic drugs; S99.921A Unspecified injury of right foot, initial encounter; W01.0XXA Fall on same level from slipping, tripping and stumbling without subsequent striking against object, initial encounter; Y93.89 Activity, other specified; Y92.89 Other specified places as the place of occurrence of the external cause; Y99.8 Other external cause status; M19.011 Primary osteoarthritis, right shoulder; M17.11 Unilateral primary osteoarthritis, right knee; E66.9 Obesity, unspecified; D64.9 Anemia, unspecified; Z91.81 History of falling; G40.409 Other generalized epilepsy and epileptic syndromes, not intractable, without status epilepticus; Z91.14 Patient's other noncompliance with medication regimen; K59.00 Constipation, unspecified; B96.29 Other Escherichia coli [E. coli] as the cause of diseases classified elsewhere; Z68.30 Body mass index [BMI] 30.0-30.9, adult
CPT/HCPCS: 36415; 70450-TC; 70544-TC; 70551-TC; 71045-TC-FY; 80048; 80053; 80061; 81003; 81015; 82550; 82553; 82962; 83036; 83605; 83721; 83735; 84100; 84439; 84443; 85025; 85651; 86140; 87040; 87086; 87186; 87804; 93005; 93010; 93306-TC; 95816; 97116-GP; 97161-GP; 99285-25; J0735; J7030